=== PATIENT | male | born 1980 | race Caucasian/White ===

== ENCOUNTER → 2019-05-06 | Outpatient (CLI) | payer SELFPAY | PROVIDERS: Visit Provider Internal Medicine Hematology & Oncology | DX: C18.2 Malignant neoplasm of ascending colon (principal) | CPT/HCPCS: 80053; 82378; 85025 ==

== ENCOUNTER → 2019-05-07 | Outpatient (CLI) | payer SELFPAY | PROVIDERS: Visit Provider Internal Medicine Hematology & Oncology | DX: C18.2 Malignant neoplasm of ascending colon (principal) | CPT/HCPCS: 85025 ==

== ENCOUNTER 2019-07-16 08:44 | Outpatient (CLI) | payer SELFPAY ==
--- NOTE | 2019-07-16 12:24 | ONC FU_ITS ---
Dr. Carlos follow up note Patient: Boubacar Martinez Unit #: [id number]: 1980 Dicatated By: Benjie Carlos M.D.Date of Visit:Jul 16, 2019 Onc Med Follow-up/Prog Note History of Present Illness: Mr. Boubacar Martinez, is a 38-year-old gentleman with history of progressive abdominal pain and distention underwent CT scan of abdomen on 02/14/2019 which showed luminal narrowing in the mid to distal transverse colon and was admitted to hospital with symptoms suggestive of obstruction and nasogastric tube was placed in. Patient continued to have small amount of flatus and some liquid stools and underwent colonoscopy which confirmed adenocarcinoma and subsequently underwent extended right hemicolectomy on 02/17/2019 final pathology report showed low-grade infiltrating adenocarcinoma, invasive into focally through muscularis propria, into superficial serosal connective tissue. Tumor size was 4 x 3.5 x 0.5 cm. Margins were clear,pT3 18 lymph nodes were removed and none of them showed metastatic disease pN0 , No lymphovascular invasion or venous invasion seen, MSI MMR status was intact. Oncotype DX score 38, means risk of recurrence within 3-year-old surgery alone is 17% for T3 tumor. And patient in whom, more than 12 nodes were examined the 3 years recurrence risk inpatient for T3, MMR proficient the absolute reduction in risk is 2% for low risk patient and are patient has a low risk disease except his age he is young and MMR proficient. Patient has no family history of colon cancer.Patient was referred to GI oncology at [facility] where he was seen on 07/14/2019 and their recommendations were observation alone with CBC CMP and CEA every [address] scan of abdomen pelvis every 6 months. And also recommended colonoscopy in a year from the surgery which was done on 02/17/2019 and if no adenoma present then repeat in 3-5 years. Also recommended genetic counseling, CT scan of abdomen pelvis was done on 06/14/2019 at [facility], it showed postsurgical changes of right hemicolectomy with no evidence of local tumor recurrence or metastatic disease to the abdomen or pelvis. Came for follow-up, denies any specific complaints, no nausea or vomiting no fever or chills no diarrhea or constipation, no abdominal pain. Patient said he is scheduled to go to genetic clinic at [facility] in the summer. Medications: This patient reports not taking external medications. Allergies: No Known Allergies. Review of Systems: Review of Systems is not available for this patient. Vital Signs: Performed on Jul 16, 2019 08:58 Height - 71.00 in Weight - 265 lbs (HIGH) BSA - 2.38 sq.m BMI - 36.96 (HIGH) Temperature - 97.1 F (LOW) Pulse - 82 /min Respiration - 18 /min BP - 134/69 mm(hg) O2 Sat - 98 % Pain - 0 Performance Status: 0 - Fully active, able to carry on all predisease activities without restrictions. (ECOG) Physical Examination: ENMT - No oral exudates, ulcers, masses, thrush or mucositis. Oropharynx clear. Tongue normal, Respiratory - Lungs are clear to auscultation without rhonchi or wheezing, Cardiovascular - Regular rate and rhythm of heart, Abdomen - Non-tender, non-distended, Good bowel sounds. No guarding or rebound tenderness. No pulsatile masses, Extremities - no edema. Lab/Imaging: Test performed on Jul 14, 2019 13:51 Glucose 128 mg/dL BUN 14 mg/dL Creatinine 0.93 mg/dL Cr Clearance (Est) 166.66 mL/min Sodium 138 mmol/L Potassium 4.0 mmol/L Chloride 101 mmol/L CO2 24 mmol/L Calcium 9.5 mg/dL Protein, Total 8.0 g/dL Albumin 4.5 g/dL Bilirubin, Total 0.37 mg/dL Alkaline Phosphatase 37 IU/L AST (SGOT) 30 IU/L ALT (SGPT) 51 IU/L WBC 6.32 10^9/L RBC 5.41 10^12/L HGB 13.6 g/dL HCT 44.3 % MCV 81.9 fl MCH 25.1 pg MCHC 30.7 g/dL Platelet Count 254 10^9/L MPV 10.4 fL Neutrophils (Gran) 3.23 10^9/L Lymphocytes 2.19 10^9/L Monocytes 0.50 10^9/L Eosinophils 0.32 10^9/L Basophils 0.06 10^9/L Manual Lymphocytes 34.7 % Manual Monocytes 7.9 % Manual Eosinophils 5.1 % Manual Basophils 0.9 % CEA 2.12 ng/mL Test performed on May 07, 2019 08:10 RDW 15.3 % Neutrophil % 48.9 % Lymphocyte % 36.6 % Monocyte % 7.7 % Eosinophil % 5.6 % Basophils % 0.9 % Test performed on May 06, 2019 09:40 Anion Gap 16.4 eGFR 108.8 mL/min Globulin 2.5 gm/dL Impression: Low-grade infiltrating adenocarcinoma involving right coronary status post right hemicolectomy done on 02/17/2019 Final pathology report showed 4 x 3.5 x 0.5 cm tumor with focal invasion through muscularis propria, into superficial serosal connective tissue. Clear surgical margins pT3 0 out of 18 lymph nodes showed metastatic disease pN0 No lymphovascular invasion or venous invasion seen. MSI MMR intact Stage II Oncotype DX score checked on 04/01/2019 showed 38, which means risk of recurrence within 3 years of surgery alone is about 17% And also inpatient with more than 12 lymph node examined, 3 years risk of recurrence was in lower in T3 MMR proficient patient an absolute reduction in risk range from 2% for the low risk to 6% for the high risk. Patient is a low risk based on above-mentioned information. Plan: Discussed with patient regarding his labs white blood count 6.3, hemoglobin 13.6 crit 44.3 platelets 254,000 CMP within normal limits CEA 2.12 Clinically, patient doing well with no signs symptoms suggestive of recurrence of disease, follow-up lab shows normal hemoglobin, tumor marker CEA within normal limits and CT scan of abdomen pelvis done on 06/14/2019 at [facility] showed no evidence of metastatic disease. Patient will return to clinic in 3 months with CBC CMP and CEA and we will follow their recommendation as far as follow-up is concern. Signed By: Benjie Carlos M.D. <<Signature on File>>
== END 2019-07-16 08:45 | disposition home or self-care (01) ==
LOC: ONCMED 08:44
PROVIDERS: Visit Provider Internal Medicine Hematology & Oncology
DX: Z08 Encounter for follow-up examination after completed treatment for malignant neoplasm (principal); Z85.038 Personal history of other malignant neoplasm of large intestine; Z90.49 Acquired absence of other specified parts of digestive tract
CPT/HCPCS: G0463

== ENCOUNTER 2019-08-13 22:37 | Emergency (ER) | payer SELFPAY ==
--- NOTE | 2019-08-13 22:56 | ED_ITS ---
HPI - Back Pain/Injury General: Chief Complaint: Back Pain/Injury Stated Complaint: back pain Time Seen by Provider: 08/13/19 22:56 Source: patient Mode of arrival: ambulatory Limitations: no limitations History of Present Illness: HPI Narrative: Pt presents with complaints of right flank and back pain. States he has had some SOB since arriving and complains of right shoulder pain. MD elicited complaint: back pain Severity: moderate Associated symptoms: Deny abdominal pain, chills, fever(s) or nausea Review of Systems General: Reports: 10 or more systems reviewed and unremarkable except in HPI and below Const: Denies: fever or chills Eyes: Denies: change in vision Resp: Reports: shortness of breath GI: Denies: abdominal pain or nausea : Reports: flank pain (right flank ) PFSH ED PFSH: Social History Smoking and tobacco status: never smoked Physical Exam Const: COMMON NORMALS: no apparent distress, oriented x3, no limitations and alert GENERAL APPEARANCE: cooperative and comfortable ORIENTATION/CONSCIOUSNESS: Yes awake, Yes oriented to person, Yes oriented to place and Yes oriented to time HENMT: COMMON NORMALS: normocephalic, head/scalp atraumatic, external ears normal, EAC's normal, TM's normal bilaterally and external nose normal HEAD & SCALP: normal to inspection, normocephalic and atraumatic FACE & SINUS: normal facial exam, sinuses nontender and face symmetric NOSE: external nose normal, nares normal and no nasal discharge EXTERNAL EAR: Yes external ears normal EXTERNAL AUDITORY CANAL: EAC's normal TYMPANIC MEMBRANE: TM's normal bilaterally MOUTH: oral and palatal mucosa normal, lip normal and tongue normal THROAT: posterior oropharynx normal, tonsils normal and uvula midline Eye: COMMON NORMALS: PERRL, EOMs intact bilaterally and conjunctivae normal GENERAL EYE: normal appearance of both eyes and normal light reflex EYELID: eyelids normal CONJUNCTIVA: Yes conjunctivae normal PUPIL: Yes PERRL EOM: Yes EOM abnormal DIRECT OPHTHALMOSCOPY: Yes normal light reflex Neck/C-Spine: COMMON NORMALS: full ROM, no lymphadenopathy, supple, no meningeal signs, no JVD and thyroid normal GENERAL: Yes normal visual inspection THYROID: thyroid normal CERVICAL SPINE: Yes cervical ROM normal and Yes normal cervical lordosis Lymph: LYMPHATIC: no lymphadenopathy noted Chest: COMMONS NORMALS: inspection of chest normal and palpation of chest normal Resp: COMMON NORMALS: normal respiratory effort, no retractions and clear to auscultation bilaterally AUSCULTATION: clear to auscultation bilaterally Cardio: COMMON NORMALS: no JVD, regular rate, regular rhythm, S1 normal heart sound, S2 normal heart sound, no gallops, no clicks, no murmurs, no rub and peripheral pulses 2+ throughout RATE: regular rate RHYTHM: regular rhythm HEART SOUNDS: S1 normal and S2 normal PERIPHERAL PULSES: pulses 2+ throughout GI: COMMON NORMALS: normal to inspection, nondistended, normoactive bowel sounds, soft to palpation, non-tender and no masses PALPATION: Yes soft : COMMON NORMALS: Yes no CVA tenderness BLADDER/KIDNEY EXAM: Yes no CVA tenderness Back/Pelvis: COMMON NORMALS: no CVA tenderness, thoracic and lumbar spine normal to inspection, no thoracic nor lumbar tenderness and thoraco-lumbar ROM normal Extremity: COMMON NORMALS: normal to inspection, full ROM, normal capillary refill, no joint enlargement, no clubbing, cyanosis or edema, no calf tenderness and no pedal edema GENERAL: Yes normal exam except as noted Neuro: COMMON NORMALS: oriented x3, moves all extremities, no focal motor deficits, no sensory deficits noted and gait normal SENSORIUM/ORIENTATION: Yes alert, Yes oriented to person, Yes oriented to place and Yes oriented to time MENINGEAL SIGNS: Yes no meningeal signs Psych: COMMON NORMALS: mental status grossly normal, thought process normal, cooperative, affect normal, speech normal and activity/motor behavior normal SPEECH: Yes normal speech THOUGHT PROCESS: normal thought process Skin: COMMON NORMALS: no rashes or lesions noted, no wounds and skin turgor normal GENERAL SKIN EXAM: no rashes or lesions noted and turgor normal Course ED course: Pt tachycardic upon triage. Complains of SOB and right shoulder pain with right flank tenderness. Rule out PE. Hx of bowel resection for colon cancer 6 mos ago. Imaging ordered, labs, and pain meds prescribed. Reevaluation(s): Reevaluation #1: Pt ct scan shows changes to previous colon resection and active colitis. He is afebrile but remains tachycardic. He is less pain after IV pain medications. Will consult with my attending Dr. Tran for further orders. Time: 01:21 Reevaluation #2: Will treat with oral antibx for colitis. Pt must return if fever develops. Follow up with Dr. Carlos on Friday to review his ct scan from today. Will dc as his WBC is 10.3 and he denies NV and is afebrile. His pain is under control and able to tolerate fluids. Time: 01:45 Vital Signs: Vital signs: Vital Signs Temperature 97.3 F L 08/13/19 23:04 Pulse Rate 98 08/14/19 00:35 Respiratory Rate 16 08/14/19 00:35 Blood Pressure 110/68 08/14/19 00:35 Pulse Oximetry 95 08/14/19 00:35 MDM - Back Pain/Injury Lab Data: Labs: Lab Results 08/13/19 08/13/19 Range/Units 23:43 23:43 WBC 10.6 H (4.0-10.0) 10^3/ uL RBC 5.53 H (4.1-5.3) 10^6/u L Hgb 14.4 (11.7-16.6) g/dL Hct 45.7 (42.0-52.0) % MCV 82.6 (80-94) fL MCH 26.0 L (28.0-34.0) pg MCHC 31.5 (30.0-36.0) g/dL RDW 17.5 H (12.1-15.1) % Plt Count 236 (130-400) 10^3/c mm MPV 10.2 (7.4-10.4) fL Neut % (Auto) 73.4 % Lymph % (Auto) 15.2 % Sabine % (Auto) 7.0 % Eos % (Auto) 3.6 % Baso % (Auto) 0.5 % Neut # (Auto) 7.8 H (1.8-7.7) 10^3/u L Lymph # (Auto) 1.6 (0.8-4.8) 10^3/u L Sabine # (Auto) 0.7 (0.2-0.9) 10^3/u L Eos # (Auto) 0.4 (0.0-0.8) 10^3/u L Baso # (Auto) 0.1 (0.0-0.1) 10^3/u L Nucleated RBC % (a uto) 0 % Nucleated RBCs # 0.0 /100WBC Sodium 135 L (136-145) mmol/L Potassium 4.6 (3.5-5.1) mmol/L Chloride 99 (98-107) mmol/L Carbon Dioxide 24 (22-29) mmol/L Anion Gap 16.6 (5-19) BUN 14 (6-20) mg/dL Creatinine 1.0 (0.7-1.2) mg/dL GFR Calculation 83.6 L (90-130) mL/min Glucose 140 H (65-115) mg/dL Calculated Osmolal ity 279 L (285-295) mOsm/k g Calcium 9.6 (8.5-10.5) mg/dL Total Bilirubin 0.3 (0.15-1.2) mg/dL AST 5 (0-40) U/L ALT 58 H (0-41) U/L Alkaline Phosphata se 43 (40-130) IU/L Total Protein 8.1 (6.6-8.7) g/dL Albumin 4.3 (3.5-5.2) g/dL Globulin 3.8 (1.3-4.6) g/dL Imaging Data^: CTA Chest: Radiologist's impression: [place] [address] CT Scan Report Signed Patient: Boubacar Martinez Unit #: [id number] : 1980 Age/Sex: 39 / M ADM Date: 08/13/19 Loc: ER Room/Bed: Attending Dr: Ordering Provider/Ordering MD: Araseli Davis NP Date of Service: 08/13/19 Procedure(s): CT angio chest w abd pel w con Accession Number(s): [id number] Report Number: [id number] PROCEDURE INFORMATION: Exam: CT Angiography Chest With Contrast Exam date and time: 08/13/2019 11:44 PM Age: 39 years old Clinical indication: Abdominal pain; Flank; Right; Shortness of breath; Other: Pleuritic pain; Prior surgery; Surgery date: 6+ months; Surgery type: Bowel resection; Patient HX: HX colon CA; Additional info: SOB; Pleuritic pain, right flank TECHNIQUE: Imaging protocol: Computed tomographic angiography of the chest with intravenous contrast. 3D rendering: MIP and/or 3D reconstructed images were created by the technologist. Total DLP: 1983.45 mGy-cm Radiation optimization: All CT scans at this facility use at least one of these dose optimization techniques: automated exposure control; mA and/or kV adjustment per patient size (includes targeted exams where dose is matched to clinical indication); or iterative reconstruction. Contrast material: OMNI 350; Contrast volume: 95 ml; Contrast route: 18G; COMPARISON: No relevant prior studies available. FINDINGS: Pulmonary arteries: There is no evidence of filling defects within the pulmonary arterial circulation to suggest pulmonary embolism. Aorta: There is no evidence of aortic dissection or aneurysm. Lungs: There is some dependent atelectasis at the lung bases. Pleural space: Unremarkable. No pneumothorax. No pleural effusion. Heart: Unremarkable. No cardiomegaly. No pericardial effusion. Lymph nodes: Unremarkable. No enlarged lymph nodes. Bones/joints: There is mild degenerative change in the thoracic spine with scoliosis concave to the left. Soft tissues: Unremarkable. IMPRESSION: Mild basilar atelectasis. No evidence of pulmonary embolism. PROCEDURE INFORMATION: Exam: CT Abdomen And Pelvis With Contrast Exam date and time: 08/13/2019 11:44 PM Age: 39 years old Clinical indication: Abdominal pain; Flank; Right; Shortness of breath; Other: Pleuritic pain; Prior surgery; Surgery date: 6+ months; Surgery type: Bowel resection; Patient HX: HX colon CA; Additional info: SOB; Pleuritic pain, right flank TECHNIQUE: Imaging protocol: Computed tomography of the abdomen and pelvis with intravenous contrast. Total DLP: 1983.45 mGy-cm Radiation optimization: All CT scans at this facility use at least one of these dose optimization techniques: automated exposure control; mA and/or kV adjustment per patient size (includes targeted exams where dose is matched to clinical indication); or iterative reconstruction. Contrast material: OMNI 350; Contrast volume: 95 ml; Contrast route: 18G; COMPARISON: CT abdomen pelvis w con* [id number] 02/14/2019 9:28:24 PM FINDINGS: Liver: Liver shows diffusely decreased density in keeping with fatty change. There is some areas of greater density in the liver representing portions which are relatively spared of fatty change. There is no focal mass within the liver. Gallbladder and bile ducts: The gallbladder is normal. Pancreas: The pancreas is normal. Spleen: The spleen is normal. Adrenals: The adrenal glands are normal. Kidneys and ureters: The kidneys are normal. Stomach and bowel: There has been right hemicolectomy. Colon is not distended but there does appear to be some mural thickening of the distal half of the descending colon which could represent some nonspecific colitis. There is no evidence for diverticulitis. There is no evidence of intestinal obstruction. There is some mildly thickened small bowel loops in the mid abdomen which may represent some nonspecific enteritis. Appendix: No evidence of appendicitis. Intraperitoneal space: There is no evidence of free intraperitoneal fluid. Vasculature: Unremarkable. No abdominal aortic aneurysm. Lymph nodes: Unremarkable. No enlarged lymph nodes. Bladder: Unremarkable as visualized. Reproductive: Unremarkable as visualized. Bones/joints: Unremarkable. No acute fracture. Soft tissues: Unremarkable. CT/CT angio chest w abd pel w con IMPRESSION: 1. Fatty liver 2. Colitis of the descending colon 3. Mild nonspecific enteritis. 4. Postsurgical changes of right hemicolectomy. Radiation Dose CTDIVOL = (mGy): DLP = 1984.45 1984.45 (mGy-cm) Dictated By: Teodoro Powers Signed By: Teodoro Powers Signed Date/Time: 08/14/19102 DD/ 0 Discharge Plan Discharge Patient Disposition: Home, Self-Care Clinical Impression: Colitis Condition: Stable Prescriptions: New Cipro 500 mg tablet 500 mg PO BID Qty: 14 RF: 0 Tylenol-Codeine #3 300-30 mg tablet 1 tab PO Q8H Qty: 10 RF: 0 Zofran 4 mg tablet 4 mg PO Q8H 4 Days Qty: 12 RF: 0 Flagyl 500 mg tablet 500 mg PO BID 7 Days Qty: 14 RF: 0 Discharge Diet: Advance as tolerated and Clear Liquid Discharge Activity: Limit activity as instructed Activity Restrictions/Additional Instructions: Follow up with Dr. Carlos next week to review your CT findings and return to ER erik if fever, NV, or blood in stool develops. Coding Level of Care Code ED [employer] for Judith Fwd Exam Comprehensive
[2019-08-13 23:04] VITALS: BP 137/89; PULSE 104; RESP 17; TEMP 36.3; O2SAT 96; BMI 33.7
--- NOTE | 2019-08-13 23:13 | PC.NURSE ---
Introduced self to patient and initiated vital signs. Patient presents A&O x 4. NAD, ABCs intact, MAEW and agreeable to treatment. Respirations are even and unlabored. Pt states that the chief complaint for the ER visit today is due to lower right back pain when getting off of couch this evening. Pt denies any vision disturbances or lightheadedness. Bed left in lowest position in semi-fowlers with side rails up.Reassured patient of needs and will continue to monitor. Awaiting provider at bedside.
--- NOTE | 2019-08-13 23:36 | CTR_ITS ---
PROCEDURE INFORMATION: Exam: CT Angiography Chest With Contrast Exam date and time: 08/13/2019 11:44 PM Age: 39 years old Clinical indication: Abdominal pain; Flank; Right; Shortness of breath; Other: Pleuritic pain; Prior surgery; Surgery date: 6+ months; Surgery type: Bowel resection; Patient HX: HX colon CA; Additional info: SOB; Pleuritic pain, right flank TECHNIQUE: Imaging protocol: Computed tomographic angiography of the chest with intravenous contrast. 3D rendering: MIP and/or 3D reconstructed images were created by the technologist. Total DLP: 1983.45 mGy-cm Radiation optimization: All CT scans at this facility use at least one of these dose optimization techniques: automated exposure control; mA and/or kV adjustment per patient size (includes targeted exams where dose is matched to clinical indication); or iterative reconstruction. Contrast material: OMNI 350; Contrast volume: 95 ml; Contrast route: 18G; COMPARISON: No relevant prior studies available. FINDINGS: Pulmonary arteries: There is no evidence of filling defects within the pulmonary arterial circulation to suggest pulmonary embolism. Aorta: There is no evidence of aortic dissection or aneurysm. Lungs: There is some dependent atelectasis at the lung bases. Pleural space: Unremarkable. No pneumothorax. No pleural effusion. Heart: Unremarkable. No cardiomegaly. No pericardial effusion. Lymph nodes: Unremarkable. No enlarged lymph nodes. Bones/joints: There is mild degenerative change in the thoracic spine with scoliosis concave to the left. Soft tissues: Unremarkable. IMPRESSION: Mild basilar atelectasis. No evidence of pulmonary embolism. PROCEDURE INFORMATION: Exam: CT Abdomen And Pelvis With Contrast Exam date and time: 08/13/2019 11:44 PM Age: 39 years old Clinical indication: Abdominal pain; Flank; Right; Shortness of breath; Other: Pleuritic pain; Prior surgery; Surgery date: 6+ months; Surgery type: Bowel resection; Patient HX: HX colon CA; Additional info: SOB; Pleuritic pain, right flank TECHNIQUE: Imaging protocol: Computed tomography of the abdomen and pelvis with intravenous contrast. Total DLP: 1983.45 mGy-cm Radiation optimization: All CT scans at this facility use at least one of these dose optimization techniques: automated exposure control; mA and/or kV adjustment per patient size (includes targeted exams where dose is matched to clinical indication); or iterative reconstruction. Contrast material: OMNI 350; Contrast volume: 95 ml; Contrast route: 18G; COMPARISON: CT abdomen pelvis w con* [id number] 02/14/2019 9:28:24 PM FINDINGS: Liver: Liver shows diffusely decreased density in keeping with fatty change. There is some areas of greater density in the liver representing portions which are relatively spared of fatty change. There is no focal mass within the liver. Gallbladder and bile ducts: The gallbladder is normal. Pancreas: The pancreas is normal. Spleen: The spleen is normal. Adrenals: The adrenal glands are normal. Kidneys and ureters: The kidneys are normal. Stomach and bowel: There has been right hemicolectomy. Colon is not distended but there does appear to be some mural thickening of the distal half of the descending colon which could represent some nonspecific colitis. There is no evidence for diverticulitis. There is no evidence of intestinal obstruction. There is some mildly thickened small bowel loops in the mid abdomen which may represent some nonspecific enteritis. Appendix: No evidence of appendicitis. Intraperitoneal space: There is no evidence of free intraperitoneal fluid. Vasculature: Unremarkable. No abdominal aortic aneurysm. Lymph nodes: Unremarkable. No enlarged lymph nodes. Bladder: Unremarkable as visualized. Reproductive: Unremarkable as visualized. Bones/joints: Unremarkable. No acute fracture. Soft tissues: Unremarkable. CT/CT angio chest w abd pel w con IMPRESSION: 1. Fatty liver 2. Colitis of the descending colon 3. Mild nonspecific enteritis. 4. Postsurgical changes of right hemicolectomy. Radiation Dose CTDIVOL = (mGy): DLP = 1983.45~1983.45 (mGy-cm)
[2019-08-13 23:49] VITALS: RESP 18
[2019-08-13 23:49] LABS: Basophils # 0.1 10^3/uL (0.0-0.1); Basophils % 0.5 %; Eosinophils # 0.4 10^3/uL (0.0-0.8); Eosinophils % 3.6 %; Hematocrit 45.7 % (42.0-52.0); Hemoglobin 14.4 g/dL (11.7-16.6); Lymphocytes # 1.6 10^3/uL (0.8-4.8); Lymphocytes % 15.2 %; Mean Corpuscular HGB Conc 31.5 g/dL (30.0-36.0); Mean Corpuscular Volume 82.6 fL (80-94); Mean Platelet Volume 10.2 fL (7.4-10.4); Monocytes # 0.7 10^3/uL (0.2-0.9); Neutrophils # 7.8 10^3/uL (1.8-7.7); Neutrophils % 73.4 %; Nucleated Red Blood Cells % 0 %; Platelet Count 236 10^3/cmm (130-400); Red Blood Count 5.53 10^6/uL (4.1-5.3); Red Cell Distribution Width 17.5 % (12.1-15.1); White Blood Count 10.6 10^3/uL (4.0-10.0)
[2019-08-13] MEDS: morphine 4 mg/mL SDV 1 mL IVP (23:49)
[2019-08-13] MEDS: ondansetron 2 mg/ML SDV 2 mL 4 MG IVP (23:50)
[2019-08-14 00:01] LABS: Albumin Level 4.3 g/dL (3.5-5.2); Alkaline Phosphatase 43 IU/L (40-130); Anion Gap 16.6 (5-19); Blood Urea Nitrogen 14 mg/dL (6-20); Calcium 9.6 mg/dL (8.5-10.5); Carbon Dioxide 24 mmol/L (22-29); Chloride 99 mmol/L (98-107); Globulin 3.8 g/dL (1.3-4.6); Glomerular Filtration Rate 83.6 mL/min (90-130); Glucose 140 mg/dL (65-115); Osmolality Calculated 279 mOsm/kg (285-295); Potassium 4.6 mmol/L (3.5-5.1); Sodium 135 mmol/L (136-145); Total Bilirubin 0.3 mg/dL (0.15-1.2); Total Protein 8.1 g/dL (6.6-8.7)
[2019-08-14 00:12] LABS: Alanine Aminotransferase 58 U/L (0-41); Aspartate Amino Transferase 5 U/L (0-40)
[2019-08-14] MEDS: iohexol 350 mg/mL 100 mL Btl IV (00:16)
[2019-08-14 00:35] VITALS: BP 110/68; PULSE 98; RESP 16; O2SAT 95
[2019-08-14] MEDS: morphine 4 mg/mL SDV 1 mL IVP (00:49)
[2019-08-14] MEDS: sodium chloride 0.9% 500 ML 999 ML IV (01:29)
[2019-08-14] MEDS: metroNIDAZOLE 500 MG Tablet PO (01:45)
[2019-08-14] MEDS: ciprofloxacin 500 mg Tablet PO (01:46)
[2019-08-14] MEDS: HYDROcodone-acetaminophen 5-325 mg Tablet 1 TAB PO (01:46)
[2019-08-14 02:19] LABS: Bilirubin Urine Neg (NEGATIVE); Blood Urine Neg (Negative); Glucose Urine UA Norm (Normal); Ketones Urine Negative (Negative); Nitrate Urine Negative (Negative); Protein Urine Trace (Negative); Specific Gravity, Urine 1.005 (1.005-1.030); Urine Appearance Clear (CLEAR); Urine Color Yellow (Yellow); pH Urine 5 (5-7)
[2019-08-14 02:20] LABS: Add Urine Microscopic? YES; Leukocyte Esterase Urine Negative (Negative); Urobilinogen Urine 1 mg/dL (Negative)
[2019-08-14 02:28] LABS: Bacteria Urine TRACE; RBC Urine RARE /hpf (0-2); Squamous Epithelial Cell Urine RARE (0-5); WBC Urine RARE /hpf (0-5)
[2019-08-14 02:31] VITALS: BP 110/68; PULSE 84; RESP 18; TEMP 37.1; O2SAT 94
--- NOTE | 2019-08-16 11:16 | DCPLANNER ---
Addendum entered by Janet Gibbons 08/17/19 15:12: Patient had an appointment scheduled for 08.16.[address] Carlos, and patient did attend the appointment. Original Note: customer support manager had message to schedule a follow up appointment for patient with Dr. Carlos. customer support manager called Mari Mi, with oncology, gave clinic patients information. customer support manager was told that patients information would be printed and reviewed. Clinic will call patient with appointment information, rifle case repairer will call for appointment information.
== END 2019-08-14 02:20 | disposition home or self-care (01) ==
PROVIDERS: Emergency Provider Nurse Practitioner Family
DX: K52.9 Noninfective gastroenteritis and colitis, unspecified (principal)
CPT/HCPCS: 12345; 71275; 74177; 80053; 81001; 85025; 96360; 96374; 96375; 96376; 99283; 99284; J2270; J2405; J7040; Q9967

== ENCOUNTER 2019-10-15 07:41 | Outpatient (CLI) | payer SELFPAY ==
[2019-10-15 08:15] LABS: Basophils # 0.1 10^3/uL (0.0-0.1); Basophils % 0.9 %; Eosinophils # 0.5 10^3/uL (0.0-0.8); Eosinophils % 7.3 %; Hematocrit 45.8 % (42.0-52.0); Hemoglobin 14.6 g/dL (11.7-16.6); Lymphocytes # 2.2 10^3/uL (0.8-4.8); Lymphocytes % 34.2 %; Mean Corpuscular HGB Conc 31.9 g/dL (30.0-36.0); Mean Corpuscular Hemoglobin 27.3 pg (28.0-34.0); Mean Corpuscular Volume 85.6 fL (80-94); Mean Platelet Volume 10.2 fL (7.4-10.4); Monocytes # 0.5 10^3/uL (0.2-0.9); Monocytes % 7.5 %; Neutrophils # 3.2 10^3/uL (1.8-7.7); Neutrophils % 49.9 %; Nucleated Red Blood Cells % 0 %; Platelet Count 239 10^3/cmm (130-400); Red Blood Count 5.35 10^6/uL (4.1-5.3); Red Cell Distribution Width 15.1 % (12.1-15.1); White Blood Count 6.4 10^3/uL (4.0-10.0)
[2019-10-15 08:33] LABS: Carcinoembryonic Antigen 3.3 ng/mL (0.0-4.7)
[2019-10-15 08:44] LABS: Alanine Aminotransferase 65 U/L (0-41); Albumin Level 4.4 g/dL (3.5-5.2); Alkaline Phosphatase 33 IU/L (40-130); Anion Gap 15.2 (5-19); Aspartate Amino Transferase 35 U/L (0-40); Blood Urea Nitrogen 15 mg/dL (6-20); Calcium 9.6 mg/dL (8.5-10.5); Carbon Dioxide 24 mmol/L (22-29); Chloride 101 mmol/L (98-107); Globulin 3.4 g/dL (1.3-4.6); Glomerular Filtration Rate 108.2 mL/min (90-130); Glucose 114 mg/dL (65-115); Osmolality Calculated 279 mOsm/kg (285-295); Potassium 4.2 mmol/L (3.5-5.1); Sodium 136 mmol/L (136-145); Total Bilirubin 0.6 mg/dL (0.15-1.2); Total Protein 7.8 g/dL (6.6-8.7)
--- NOTE | 2019-10-15 10:17 | ONC FU_ITS ---
Dr. Carlos follow up note Patient: Boubacar Martinez Unit #: [id number]: 1980 Dicatated By: Benjie Carlos M.D.Date of Visit:Oct 15, 2019 Onc Med Follow-up/Prog Note History of Present Illness: Mr. Boubacar Martinez, is a 39-year-old gentleman with history of progressive abdominal pain and distention underwent CT scan of abdomen on 02/14/2019 which showed luminal narrowing in the mid to distal transverse colon and was admitted to hospital with symptoms suggestive of obstruction and nasogastric tube was placed in. Patient continued to have small amount of flatus and some liquid stools and underwent colonoscopy which confirmed adenocarcinoma and subsequently underwent extended right hemicolectomy on 02/17/2019 final pathology report showed low-grade infiltrating adenocarcinoma, invasive into focally through muscularis propria, into superficial serosal connective tissue. Tumor size was 4 x 3.5 x 0.5 cm. Margins were clear,pT3 18 lymph nodes were removed and none of them showed metastatic disease pN0 , No lymphovascular invasion or venous invasion seen, MSI MMR status was intact. Oncotype DX score 38, means risk of recurrence within 3-year-old surgery alone is 17% for T3 tumor. And patient in whom, more than 12 nodes were examined the 3 years recurrence risk inpatient for T3, MMR proficient the absolute reduction in risk is 2% for low risk patient and are patient has a low risk disease except his age he is young and MMR proficient. Patient has no family history of colon cancer.Patient was referred to GI oncology at [facility] where he was seen on 07/14/2019 and their recommendations were observation alone with CBC CMP and CEA every [address] scan of abdomen pelvis every 6 months. And also recommended colonoscopy in a year from the surgery which was done on 02/17/2019 and if no adenoma present then repeat in 3-5 years. Also recommended genetic counseling, CT scan of abdomen pelvis was done on 06/14/2019 at [facility], it showed postsurgical changes of right hemicolectomy with no evidence of local tumor recurrence or metastatic disease to the abdomen or pelvis. Came for follow-up, denies any specific complaints, no fever or chills, no nausea or vomiting, no diarrhea or constipation, no melena or hematochezia, no abdominal pain, no jaundice, no weight loss, appetite is good. Medications: This patient reports not taking external medications. Allergies: No Known Allergies. Review of Systems: Constitutional - Appetite is good and weight is flucuating. No fever, chills, hot flashes, or night sweats. Energy level is fair, ENMT - No sinus congestion/drainage. No mouth sores. No sore throat or difficulty swallowing, Hematologic/Lymphatic - No abnormal bruising or bleeding, Respiratory - No shortness of breath. No cough. No pleuritic pain or hemoptysis, Cardiovascular - No angina pain. No palpitations, Gastrointestinal - No nausea or vomiting. Positive for heartburn, no acid reflux. No diarrhea or constipation. No blood in the stool or black stools, Genitourinary (M) - No dysuria or hematuria. No urinary frequency. No urgency or incontinence, Musculoskeletal - Positive for back pain, Neurologic - No headache or dizziness. Positive for numbness, Psychiatric - No anxiety or depression. No insomnia. Vital Signs: Performed on Oct 15, 2019 09:51 Height - 71.00 in Weight - 267.8 lbs (HIGH) BSA - 2.39 sq.m BMI - 37.35 (HIGH) Temperature - 98.5 F Pulse - 85 /min Respiration - 22 /min BP - 116/75 mm(hg) O2 Sat - 96 % Pain - 0 Performance Status: 0 - Fully active, able to carry on all predisease activities without restrictions. (ECOG) Physical Examination: ENMT - No mouth sores, no thrush, no jaundice, Respiratory - Lungs are clear, Cardiovascular - Regular rate and rhythm of heart, Abdomen - Soft, bowel sounds present, Extremities - No edema or rash. Lab/Imaging: Test performed on Jul 14, 2019 13:51 Glucose 128 mg/dL BUN 14 mg/dL Creatinine 0.93 mg/dL Cr Clearance (Est) 166.66 mL/min Sodium 138 mmol/L Potassium 4.0 mmol/L Chloride 101 mmol/L CO2 24 mmol/L Calcium 9.5 mg/dL Protein, Total 8.0 g/dL Albumin 4.5 g/dL Bilirubin, Total 0.37 mg/dL Alkaline Phosphatase 37 IU/L AST (SGOT) 30 IU/L ALT (SGPT) 51 IU/L WBC 6.32 10^9/L RBC 5.41 10^12/L HGB 13.6 g/dL HCT 44.3 % MCV 81.9 fl MCH 25.1 pg MCHC 30.7 g/dL Platelet Count 254 10^9/L MPV 10.4 fL Neutrophils (Gran) 3.23 10^9/L Lymphocytes 2.19 10^9/L Monocytes 0.50 10^9/L Eosinophils 0.32 10^9/L Basophils 0.06 10^9/L Manual Lymphocytes 34.7 % Manual Monocytes 7.9 % Manual Eosinophils 5.1 % Manual Basophils 0.9 % CEA 2.12 ng/mL Test performed on May 07, 2019 08:10 RDW 15.3 % Neutrophil % 48.9 % Lymphocyte % 36.6 % Monocyte % 7.7 % Eosinophil % 5.6 % Basophils % 0.9 % Test performed on May 06, 2019 09:40 Anion Gap 16.4 eGFR 108.8 mL/min Globulin 2.5 gm/dL Impression: Low-grade infiltrating adenocarcinoma involving right coronary status post right hemicolectomy done on 02/17/2019 Final pathology report showed 4 x 3.5 x 0.5 cm tumor with focal invasion through muscularis propria, into superficial serosal connective tissue. Clear surgical margins pT3 0 out of 18 lymph nodes showed metastatic disease pN0 No lymphovascular invasion or venous invasion seen. MSI MMR intact Stage II Oncotype DX score checked on 04/01/2019 showed 38, which means risk of recurrence within 3 years of surgery alone is about 17% And also inpatient with more than 12 lymph node examined, 3 years risk of recurrence was in lower in T3 MMR proficient patient an absolute reduction in risk range from 2% for the low risk to 6% for the high risk. Patient is a low risk based on above-mentioned information. Plan: Discussed with patient regarding his labs white blood count 6.4 hemoglobin 14.6 crit 45.8 platelets 239,000 CMP within normal limits CEA 3.3 Clinically patient has no signs symptoms suggestive of recurrence of disease his lab work-up was within normal range including tumor marker. We will continue to monitor and he will return to clinic in 6 months with CMP and CEA , his year after surgery follow-up colonoscopy is due in February or March 2020. Signed By: Benjie Carlos M.D. <<Signature on File>>
== END 2019-10-15 07:42 | disposition home or self-care (01) ==
LOC: ONCMED 07:42
PROVIDERS: Visit Provider Internal Medicine Hematology & Oncology
DX: Z08 Encounter for follow-up examination after completed treatment for malignant neoplasm (principal); Z85.038 Personal history of other malignant neoplasm of large intestine; Z90.49 Acquired absence of other specified parts of digestive tract
CPT/HCPCS: 36415; 80053; 82378; 85025; G0463

== ENCOUNTER 2019-12-01 06:01 | Day surgery (SDC) | payer SELFPAY ==
[2019-11-29 13:16] VITALS: BMI 36.6
[2019-12-01 06:14] VITALS: BP 134/78; PULSE 77; RESP 18; TEMP 36.1; O2SAT 99
--- NOTE | 2019-12-01 06:21 | W.PM.OPSFHP ---
Same Day Surgery H&P Indication for Procedure/HPI DATE OF PROCEDURE: December 01, 2019 CHIEF COMPLAINT/INDICATIONFOR SURGICAL PROCEDURE: I am here to have colonoscopy PREOP DIAGNOSIS: History of colon cancer PLANNED PROCEDRUE: Operation Date: 12/01/19 07:00 Proposed Procedures p Colonoscopy 36882 Z86.010(Not Applicable) - Sterling Newton MD This is a pleasant 39 years old gentleman with history of right-sided colon Cancer that required right hemicolectomy about a year ago and patient was referred to my practice to discuss surveillance colonoscopy. Patient has been complaining of left-sided abdominal pain but the CT scan did not show much mostly musculoskeletal ROS All systems have been reviewed negative except as per the above or per problem list Medications/Allergies* Home Medications Medication Instructions Recorded Confirmed Type No Known Home Medications 11/29/19 11/29/19 History Allergies/Adverse Reactions Allergy/AdvReac Type Severity Reaction Status Date / Time No Known Allergies Allergy Verified 12/01/19 06:25 Pertinent History/Comorbid Conditions* Surgical History (Updated 10/29/19 @ 13:15 by Sterling Newton MD) H/O circumcision H/O colonoscopy 2018 H/O malignant neoplasm of colon History of colon resection colon cancer Family History (Updated 10/28/19 @ 11:23 by Britney Cortez LPN) Diabetes Cancer Father Grandfather Denies family history of CAD (coronary artery disease) Anesthesia complication Bleeding disorder Social History Smoking and tobacco status: never smoked Alcohol intake: never Household members: friend(s) Marital status: Single Current occupational status: employed History of recent travel: No Pertinent Exam Findings alert, oriented x 3, clear to auscultation bilaterally, regular rate & rhythm and procedure specific exam findings (Dominant examination nontender nondistended soft) Recommendations Surgery/Procedure today (Surveillance colonoscopy) Coding Level of Care Code Acute Local Sales Manager for [employer]
[2019-12-01] MEDS: sodium chloride 0.9% 1,000 ML 30 ML IV (06:34)
--- NOTE | 2019-12-01 06:52 | ANES.PREANE2 ---
Pre-Anesthetic Assessment Pre-Anesthetic Assessment: Height/Weight: Height 1.8 m Weight 119.295 kg Temp Pulse Resp BP Pulse Ox 97.0 F L 77 18 134/78 99 12/01/19 06:14 12/01/19 06:14 12/01/19 06:14 12/01/19 06:14 12/01/19 06:14 Preop Diagnosis: History of colon cancer Proposed Procedure: Operation Date: 12/01/19 07:00 Proposed Procedures p Colonoscopy 55575 Z86.010(Not Applicable) - Sterling Newton MD Was Beta Carmen taken within 24 hours: N/A Last intake: Intake Last Liquid Date 11/30/19 Last Liquid Time 21:00 Last Solid Date 11/29/19 Social: Social History: No alcohol and No tobacco Exam: Pre-Anes Outpt Exam: alert, oriented x 3, clear to auscultation bilaterally and regular rate & rhythm Airway: Submandibular: WNL Cervical ROM: WNL MP: 2 Additional comments: facial hair History/ROS: No significant history except as noted Pulmonary: Pulmonary: None reported CV/HEM: CV/HEM: None reported : : None reported Hepatic: Hepatic: None reported GI: GI: None reported Metabolic: Metabolic: None reported Musc/skel: Musc/skel: None reported Neuropsych: Neuropsych: None reported Anesthetic Plan: ASA status: 2 Anesthesia: Anesthesia Evaluation and MAC Risk of > 500 ml blood loss (7ml/kg in children): No Meds/Allergies Current Medications: Current Medications Generic Name Dose Route Start Last Admin Trade Name Freq PRN Reason Stop Dose Admin Sodium Chloride 1,000 mls @ 30 ml s/hr 12/01/19 06:15 12/01/19 06:34 Sodium Chloride 0.9% IV 30 mls/hr .Q24H JERONIMO Administration PFSH Anesthesia PFSH: Surgical History H/O circumcision H/O colonoscopy 2019 H/O malignant neoplasm of colon History of colon resection colon cancer Family History Father Cancer Grandfather Cancer Other Diabetes Denies family history of CAD (coronary artery disease) Anesthesia complication Bleeding disorder Social History Smoking and tobacco status: never smoked Alcohol intake: never Household members: friend(s) Marital status: Single Current occupational status: employed History of recent travel: No Data Anesthesia Cardiac Studies: No Data to Display
[2019-12-01 07:10] VITALS: BP 115/74; PULSE 82; RESP 18; TEMP 37.1; O2SAT 99
[2019-12-01 07:25] VITALS: BP 106/68; PULSE 80; RESP 18; O2SAT 96
== END 2019-12-01 07:30 | disposition home or self-care (01) ==
PROVIDERS: Visit Provider Surgery
PROC: 0DJD8ZZ Inspection of Lower Intestinal Tract, Via Natural or Artificial Opening Endoscopic (ICD-10-PCS; CPT 45378; principal; 2019-12-01 07:00)
DX: Z12.11 Encounter for screening for malignant neoplasm of colon (principal); Z80.0 Family history of malignant neoplasm of digestive organs; K63.89 Other specified diseases of intestine
CPT/HCPCS: 12345; 45378; J2704; J7030

== ENCOUNTER 2020-05-01 08:07 | Outpatient (CLI) | payer SELFPAY ==
[2020-05-01 09:01] LABS: Basophils # 0.1 10^3/uL (0.0-0.1); Basophils % 0.8 %; Eosinophils # 0.3 10^3/uL (0.0-0.8); Eosinophils % 5.1 %; Hemoglobin 15.5 g/dL (11.7-16.6); Lymphocytes # 2.5 10^3/uL (0.8-4.8); Lymphocytes % 36.8 %; Mean Corpuscular HGB Conc 31.6 g/dL (30.0-36.0); Mean Corpuscular Volume 85.4 fL (80-94); Mean Platelet Volume 10.3 fL (7.4-10.4); Monocytes # 0.5 10^3/uL (0.2-0.9); Monocytes % 7.8 %; Neutrophils # 3.28 10^3/uL (1.8-7.7); Neutrophils % 49.2 %; Nucleated Red Blood Cells % 0 %; Platelet Count 248 10^3/cmm (130-400); Red Blood Count 5.74 10^6/uL (4.1-5.3); White Blood Count 6.7 10^3/uL (4.0-10.0)
[2020-05-01 09:19] LABS: Alanine Aminotransferase 74 U/L (0-41); Albumin Level 4.5 g/dL (3.5-5.2); Alkaline Phosphatase 56 IU/L (40-130); Anion Gap 14.4 (5-19); Aspartate Amino Transferase 34 U/L (0-40); Blood Urea Nitrogen 12 mg/dL (6-20); Calcium 9.2 mg/dL (8.5-10.5); Carbon Dioxide 26 mmol/L (22-29); Chloride 101 mmol/L (98-107); Globulin 3.1 g/dL (1.3-4.6); Glomerular Filtration Rate 108.2 mL/min (90-130); Glucose 104 mg/dL (65-115); Osmolality Calculated 284 mOsm/kg (285-295); Potassium 4.4 mmol/L (3.5-5.1); Sodium 137 mmol/L (136-145); Total Bilirubin 0.3 mg/dL (0.15-1.2); Total Protein 7.6 g/dL (6.6-8.7)
[2020-05-01 09:50] LABS: Carcinoembryonic Antigen 1.8 ng/mL (0.0-4.7)
== END 2020-05-01 08:08 | disposition home or self-care (01) ==
LOC: ONCMED 08:08
PROVIDERS: Visit Provider Internal Medicine Hematology & Oncology
DX: C18.2 Malignant neoplasm of ascending colon (principal)
CPT/HCPCS: 36415; 80053; 82378; 85025

== ENCOUNTER 2020-05-02 05:57 | Outpatient (CLI) | payer SELFPAY ==
--- NOTE | 2020-05-02 09:46 | ONC FU_ITS ---
Dr. Carlos follow up note Patient: Boubacar Martinez Unit #: [id number]: 1980 Dicatated By: Benjie Carlos M.D.Date of Visit:May 02, 2020 Onc Med Follow-up/Prog Note History of Present Illness: Mr. Boubacar Martinez, is a 39-year-old gentleman with history of progressive abdominal pain and distention underwent CT scan of abdomen on 02/14/2019 which showed luminal narrowing in the mid to distal transverse colon and was admitted to hospital with symptoms suggestive of obstruction and nasogastric tube was placed in. Patient continued to have small amount of flatus and some liquid stools and underwent colonoscopy which confirmed adenocarcinoma and subsequently underwent extended right hemicolectomy on 02/17/2019 final pathology report showed low-grade infiltrating adenocarcinoma, invasive into focally through muscularis propria, into superficial serosal connective tissue. Tumor size was 4 x 3.5 x 0.5 cm. Margins were clear,pT3 18 lymph nodes were removed and none of them showed metastatic disease pN0 , No lymphovascular invasion or venous invasion seen, MSI MMR status was intact. Oncotype DX score 38, means risk of recurrence within 3-year-old surgery alone is 17% for T3 tumor. And patient in whom, more than 12 nodes were examined the 3 years recurrence risk inpatient for T3, MMR proficient the absolute reduction in risk is 2% for low risk patient and are patient has a low risk disease except his age he is young and MMR proficient. Patient has no family history of colon cancer.Patient was referred to GI oncology at [facility] where he was seen on 07/14/2019 and their recommendations were observation alone with CBC CMP and CEA every [address] scan of abdomen pelvis every 6 months. And also recommended colonoscopy in a year from the surgery which was done on 02/17/2019 and if no adenoma present then repeat in 3-5 years. Also recommended genetic counseling, CT scan of abdomen pelvis was done on 06/14/2019 at [facility], it showed postsurgical changes of right hemicolectomy with no evidence of local tumor recurrence or metastatic disease to the abdomen or pelvis. Underwent follow-up colonoscopy on December 01, 2019 which showed no abnormality noted, wide patent ileocolic anastomosis with no evidence of local recurrence Patient said in December 2019 he had 50 feet' fall and injured his upper back and fracture of scapula and multiple ribs for which he was transferred to [place] where he underwent upper back surgery and followed by rehab with good recovery Came for follow-up, denies any specific complaints, no melena or hematochezia no hemoptysis or hematemesis, no jaundice, no abdominal pain, recently underwent colonoscopy which was unremarkable. And also had work-related incident, as per patient had a 50 feet fall and injured his upper back/scapula and multiple ribs and was referred to [place] where he underwent surgery with thoracic vertebra internal fixation followed by rehab, now recovering well. Medications: This patient reports not taking external medications. Allergies: No Known Allergies. Review of Systems: Constitutional - Appetite is good and weight is flucuating. No fever, chills, hot flashes, or night sweats. Energy level is fair, ENMT - No sinus congestion/drainage. No mouth sores. No sore throat or difficulty swallowing, Hematologic/Lymphatic - No abnormal bruising or bleeding, Respiratory - No shortness of breath. No cough. No pleuritic pain or hemoptysis, Cardiovascular - No angina pain. No palpitations, Gastrointestinal - No nausea or vomiting. Positive for heartburn, no acid reflux. No diarrhea or constipation. No blood in the stool or black stools, Genitourinary (M) - No dysuria or hematuria. No urinary frequency. No urgency or incontinence, Musculoskeletal - Positive for back pain, Neurologic - No headache or dizziness. No numbness, Psychiatric - No anxiety or depression. No insomnia. Vital Signs: Performed on May 02, 2020 09:18 Height - 71.00 in Weight - 270.2 lbs (HIGH) BSA - 2.40 sq.m BMI - 37.69 (HIGH) Temperature - 98.2 F (LOW) Pulse - 90 /min Respiration - 22 /min BP - 138/87 mm(hg) O2 Sat - 97 % Pain - 0 Performance Status: 0 - Fully active, able to carry on all predisease activities without restrictions. (ECOG) Physical Examination: ENMT - No mouth sores, no thrush, no jaundice, Respiratory - Lungs are clear to auscultation, Cardiovascular - Regular rate and rhythm of heart, Abdomen - Soft, bowel sounds present, Extremities - No visible edema. Lab/Imaging: Test performed on May 01, 2020 08:41 Sodium 137 mmol/L Potassium 4.4 mmol/L Chloride 101 mmol/L CO2 26 mmol/L Anion Gap 14.4 BUN 12 mg/dL Creatinine 0.8 mg/dL Cr Clearance (Est) 215.1100 mL/min eGFR 108.2 mL/min Glucose 104 mg/dL Osmolality - Calculated 284 mOsm/kg Calcium 9.2 mg/dL Protein, Total 7.6 g/dL Albumin 4.5 g/dL Globulin 3.1 g/dL Bilirubin, Total 0.3 mg/dL ALT (SGPT) 74 U/L AST (SGOT) 34 U/L Alkaline Phosphatase 56 IU/L WBC 6.7 10 3/uL RBC 5.74 10 6/uL HGB 15.5 g/dL HCT 49.0 % MCV 85.4 fL MCH 27.0 pg MCHC 31.6 g/dL RDW 15.0 % Platelet Count 248 10 3/cmm MPV 10.3 fL Neutrophils 3.28 10 3/uL Lymphocytes 2.5 10 3/uL Monocytes 0.5 10 3/uL Eosinophils 0.3 10 3/uL Basophils 0.1 10 3/uL Neutrophil % 49.2 % Lymphocyte % 36.8 % Monocyte % 7.8 % Eosinophil % 5.1 % Basophils % 0.8 % NRBC % 0 % CEA 1.8 ng/mL Impression: Low-grade infiltrating adenocarcinoma involving right colon status post right hemicolectomy done on 02/17/2019 Final pathology report showed 4 x 3.5 x 0.5 cm tumor with focal invasion through muscularis propria, into superficial serosal connective tissue. Clear surgical margins pT3 0 out of 18 lymph nodes showed metastatic disease pN0 No lymphovascular invasion or venous invasion seen. MSI MMR intact Stage II Oncotype DX score checked on 04/01/2019 showed 38, which means risk of recurrence within 3 years of surgery alone is about 17% And also inpatient with more than 12 lymph node examined, 3 years risk of recurrence was in lower in T3 MMR proficient patient an absolute reduction in risk range from 2% for the low risk to 6% for the high risk. Patient is a low risk based on above-mentioned information Follow-up colonoscopy done on December 01, 2019 showed no abnormality no evidence of recurrence at anastomosis site. Plan: Discussed with patient regarding his labs white blood count 6.7 hemoglobin 15.5 hematocrit 49 platelets 248,000 CMP within normal limit except ALT 74 and CEA 1.8 and follow-up colonoscopy done in November 2019 showed no abnormality, anastomosis site no evidence of recurrence Clinically, patient doing well with no new signs symptom suggestive of recurrence of disease, follow-up lab work-up is within normal range except mildly elevated ALT which could be due to fatty liver, patient denies alcohol use, will continue to monitor, if worsening, will consider radiological studies. Return to clinic in 6 months with CBC CMP Signed By: Benjie Carlos M.D. <<Signature on File>>
== END 2020-05-02 05:58 | disposition home or self-care (01) ==
LOC: ONCMED 05:59
PROVIDERS: Visit Provider Internal Medicine Hematology & Oncology
DX: Z08 Encounter for follow-up examination after completed treatment for malignant neoplasm (principal); Z85.038 Personal history of other malignant neoplasm of large intestine; R74.01 Elevation of levels of liver transaminase levels; K76.0 Fatty (change of) liver, not elsewhere classified; Z90.49 Acquired absence of other specified parts of digestive tract
CPT/HCPCS: G0463

== ENCOUNTER 2020-10-31 10:27 | Outpatient (CLI) | payer MEDICAID, SELFPAY ==
[2020-10-31 12:09] LABS: Basophils % 0.6 %; Eosinophils # 0.3 10^3/uL (0.0-0.8); Eosinophils % 4.1 %; Hematocrit 47.6 % (42.0-52.0); Hemoglobin 15.4 g/dL (11.7-16.6); Lymphocytes # 2.1 10^3/uL (0.8-4.8); Lymphocytes % 31.7 %; Mean Corpuscular HGB Conc 32.4 g/dL (30.0-36.0); Mean Corpuscular Hemoglobin 29.2 pg (28.0-34.0); Mean Corpuscular Volume 90.2 fL (80-94); Mean Platelet Volume 10.4 fL (7.4-10.4); Monocytes # 0.4 10^3/uL (0.2-0.9); Monocytes % 6.2 %; Neutrophils # 3.76 10^3/uL (1.8-7.7); Neutrophils % 56.9 %; Nucleated Red Blood Cells % 0 %; Platelet Count 260 10^3/cmm (130-400); Red Blood Count 5.28 10^6/uL (4.1-5.3); Red Cell Distribution Width 13.6 % (12.1-15.1); White Blood Count 6.6 10^3/uL (4.0-10.0)
[2020-10-31 13:23] LABS: Alanine Aminotransferase 63 U/L (0-41); Albumin Level 4.6 g/dL (3.5-5.2); Alkaline Phosphatase 39 IU/L (40-130); Anion Gap 15.5 (5-19); Aspartate Amino Transferase 35 U/L (0-40); Blood Urea Nitrogen 13 mg/dL (6-20); Calcium 9.2 mg/dL (8.5-10.5); Carbon Dioxide 25 mmol/L (22-29); Chloride 101 mmol/L (98-107); Globulin 2.8 g/dL (1.3-4.6); Glomerular Filtration Rate 125.5 mL/min (90-130); Glucose 99 mg/dL (65-115); Osmolality Calculated 284 mOsm/kg (285-295); Potassium 4.5 mmol/L (3.5-5.1); Sodium 137 mmol/L (136-145); Total Bilirubin 0.4 mg/dL (0.15-1.2); Total Protein 7.4 g/dL (6.6-8.7)
--- NOTE | 2020-10-31 15:44 | ONC FU_ITS ---
Dr. Carlos follow up note Patient: Boubacar Martinez Unit #: [id number]: 1980 Dicatated By: Benjie Carlos M.D.Date of Visit:Oct 31, 2020 Onc Med Follow-up/Prog Note History of Present Illness: Mr. Boubacar Martinez, is a 40-year-old gentleman with history of progressive abdominal pain and distention underwent CT scan of abdomen on 02/14/2019 which showed luminal narrowing in the mid to distal transverse colon and was admitted to hospital with symptoms suggestive of obstruction and nasogastric tube was placed in. Patient continued to have small amount of flatus and some liquid stools and underwent colonoscopy which confirmed adenocarcinoma and subsequently underwent extended right hemicolectomy on 02/17/2019 final pathology report showed low-grade infiltrating adenocarcinoma, invasive into focally through muscularis propria, into superficial serosal connective tissue. Tumor size was 4 x 3.5 x 0.5 cm. Margins were clear,pT3 18 lymph nodes were removed and none of them showed metastatic disease pN0 , No lymphovascular invasion or venous invasion seen, MSI MMR status was intact. Oncotype DX score 38, means risk of recurrence within 3-year-old surgery alone is 17% for T3 tumor. And patient in whom, more than 12 nodes were examined the 3 years recurrence risk inpatient for T3, MMR proficient the absolute reduction in risk is 2% for low risk patient and are patient has a low risk disease except his age he is young and MMR proficient. Patient has no family history of colon cancer.Patient was referred to GI oncology at [facility] where he was seen on 07/14/2019 and their recommendations were observation alone with CBC CMP and CEA every [address] scan of abdomen pelvis every 6 months. And also recommended colonoscopy in a year from the surgery which was done on 02/17/2019 and if no adenoma present then repeat in 3-5 years. Also recommended genetic counseling, CT scan of abdomen pelvis was done on 06/14/2019 at [facility], it showed postsurgical changes of right hemicolectomy with no evidence of local tumor recurrence or metastatic disease to the abdomen or pelvis. Underwent follow-up colonoscopy on December 01, 2019 which showed no abnormality noted, wide patent ileocolic anastomosis with no evidence of local recurrence Patient said in December 2019 he had 50 feet' fall and injured his upper back and fracture of scapula and multiple ribs for which he was transferred to [place] where he underwent upper back surgery and followed by rehab with good recovery Came for follow-up, denies any specific complaints, no fever chills, no nausea or vomiting, no diarrhea or constipation, no abdominal pain, no jaundice, appetite is good. Medications: This patient reports not taking external medications. Allergies: No Known Allergies. Review of Systems: Review of Systems is not available for this patient. Vital Signs: Performed on Oct 31, 2020 13:08 Height - 71.00 in Weight - 273.0 lbs (HIGH) BSA - 2.41 sq.m BMI - 38.08 (HIGH) Temperature - 97.7 F (LOW) Pulse - 86 /min Respiration - 18 /min BP - 127/81 mm(hg) O2 Sat - 98 % Pain - 4 Performance Status: 0 - Fully active, able to carry on all predisease activities without restrictions. (ECOG) Physical Examination: ENMT - No mouth sores, no thrush, no jaundice, Respiratory - Lungs are clear to auscultation, Cardiovascular - Regular rate and rhythm of heart, Abdomen - Soft, bowel sounds present, Extremities - No visible edema or rash. Lab/Imaging: Most recent lab results are not available for this patient. Impression: Low-grade infiltrating adenocarcinoma involving right colon status post right hemicolectomy done on 02/17/2019 Final pathology report showed 4 x 3.5 x 0.5 cm tumor with focal invasion through muscularis propria, into superficial serosal connective tissue. Clear surgical margins pT3 0 out of 18 lymph nodes showed metastatic disease pN0 No lymphovascular invasion or venous invasion seen. MSI MMR intact Stage II Oncotype DX score checked on 04/01/2019 showed 38, which means risk of recurrence within 3 years of surgery alone is about 17% And also inpatient with more than 12 lymph node examined, 3 years risk of recurrence was in lower in T3 MMR proficient patient an absolute reduction in risk range from 2% for the low risk to 6% for the high risk. Patient is a low risk based on above-mentioned information Follow-up colonoscopy done on December 01, 2019 showed no abnormality no evidence of recurrence at anastomosis site. Plan: Discussed with patient regarding his labs white blood count 6.6 hemoglobin 15.4 hematocrit 47.6 platelets 260,000 CMP within normal limits Clinically, patient doing well with no new signs symptom suggestive of recurrence of disease, his lab work-up is within normal range, he will return to clinic in 6 months with CBC CMP and CEA. Signed By: Benjie Carlos M.D. <<Signature on File>>
== END 2020-10-31 10:28 | disposition home or self-care (01) ==
LOC: ONCMED 10:31
PROVIDERS: Visit Provider Internal Medicine Hematology & Oncology
DX: Z08 Encounter for follow-up examination after completed treatment for malignant neoplasm (principal); Z85.038 Personal history of other malignant neoplasm of large intestine; Z79.899 Other long term (current) drug therapy
CPT/HCPCS: 36415; 80053; 85025; 99214

== ENCOUNTER 2020-11-22 21:33 | Emergency (ER) | payer MEDICAID, SELFPAY ==
[2020-11-22 21:46] VITALS: BP 151/84; PULSE 103; RESP 17; TEMP 37.7; O2SAT 95; BMI 34.8
--- NOTE | 2020-11-22 22:46 | XRR_ITS ---
PROCEDURE INFORMATION: Exam: XR Chest Exam date and time: 11/22/2020 10:46 PM Age: 40 years old Clinical indication: Fever and shortness of breath; Prior surgery; Surgery type: Shoulder. ; Patient HX: SOB and fever. History of colon cancer. TECHNIQUE: Imaging protocol: XR of the chest. Views: 1 view. COMPARISON: [place] Chest 1 [place] [id number] 02/14/2019 9:05 PM FINDINGS: Lungs: Lungs are well aerated without a focal area of consolidation. Pleural spaces: See Bones/joints finding. Heart/Mediastinum: Unremarkable. No cardiomegaly. Bones/joints: Prior surgical fixation left scapula; Old rib fractures on the left. Pleural thickening. Prior left clavicular fracture. XR/XR chest 1V portable [id number] IMPRESSION: Lungs are well aerated without a focal area of consolidation.
[2020-11-23 01:17] VITALS: BP 133/88; PULSE 95; RESP 18; O2SAT 96
[2020-11-23] MEDS: sodium chloride 0.9% 1,000 ML 999 ML IV (01:29)
[2020-11-23] MEDS: ketorolac 30 mg/mL INJ IVP (01:30)
[2020-11-23 01:35] LABS: Basophils % 0.6 %; Eosinophils # 0.1 10^3/uL (0.0-0.8); Eosinophils % 0.9 %; Hematocrit 45.9 % (42.0-52.0); Hemoglobin 14.8 g/dL (11.7-16.6); Lymphocytes # 1.5 10^3/uL (0.8-4.8); Lymphocytes % 28.4 %; Mean Corpuscular HGB Conc 32.2 g/dL (30.0-36.0); Mean Corpuscular Hemoglobin 28.8 pg (28.0-34.0); Mean Corpuscular Volume 89.5 fL (80-94); Mean Platelet Volume 10.2 fL (7.4-10.4); Monocytes # 0.8 10^3/uL (0.2-0.9); Monocytes % 15.3 %; Neutrophils # 2.96 10^3/uL (1.8-7.7); Neutrophils % 54.4 %; Nucleated Red Blood Cells % 0 %; Platelet Count 210 10^3/cmm (130-400); Red Blood Count 5.13 10^6/uL (4.1-5.3); Red Cell Distribution Width 13.7 % (12.1-15.1); White Blood Count 5.4 10^3/uL (4.0-10.0)
--- NOTE | 2020-11-23 01:41 | W.ED.COVID ---
HPI - COVID General: Chief Complaint: COVID symptoms Stated Complaint: Fever\Head Aches\Nausea Time Seen by Provider: 11/23/20 01:00 Source: patient Mode of arrival: ambulatory Limitations: no limitations Triage information: Has fever, cough or shortness of breath. No known COVID + exposure last 14 days History of Present Illness: HPI Narrative: 40-year-old male with a previous history of colon cancer is currently in remission. He states that over last 2 days he is having fatigue is mild headaches cough and fever. He is febrile here. He denies any sick contacts. Denies any shortness of breath. He does have a low-grade fever here. He states concerned he may have Covid. He denies any worsening improving factors. COVID 19 common symptoms: positive fever(s), non-productive cough and body aches; negative headache(s), throat pain, nausea, vomiting or diarrhea COVID 19 other sytmptoms: negative chest pain COVID Results: SARS-CoV-2 Antigen (Rapid) Positive (Negative) H 11/23/20 01:52 11/23/20 Review of Systems Const: Reports: fever(s) and body aches Eyes: Denies: blurry vision or eye discomfort ENMT: Denies: throat pain or dental pain Card: Denies: chest pain Resp: Reports: non-productive cough GI: Denies: abdominal pain, nausea, vomiting or diarrhea : Denies: dysuria Musc: Denies: neck pain or back pain Skin/Breast: Denies: rash Neuro: Denies: headache(s) Psych: Denies: depression Henry/Lymph: Denies: easy bruising All/Imm: Denies: urticaria PFSH ED PFSH: Surgical History H/O circumcision H/O colonoscopy 2019 H/O malignant neoplasm of colon History of colon resection colon cancer Family History Father Cancer Grandfather Cancer Other Diabetes Denies family history of CAD (coronary artery disease) Anesthesia complication Bleeding disorder Social History Smoking and tobacco status: never smoked Alcohol intake: never Household members: friend(s) Marital status: Single Current occupational status: employed History of recent travel: No Physical Exam Const: COMMON NORMALS: no acute distress, patient oriented x3 and healthy appearing HENMT: COMMON NORMALS: normocephalic and atraumatic HEAD & SCALP: normocephalic and atraumatic Eye: COMMON NORMALS: Equal, round and reactive pupils present and EOMs intact bilaterally PUPIL: Yes Equal, round and reactive pupils present Neck/C-Spine: COMMON NORMALS: full ROM and supple Chest: COMMONS NORMALS: normal inspection of the chest and normal palpation of entire chest wall Resp: COMMON NORMALS: normal respiratory effort, No retractions, No use of accessory muscles and clear to auscultation bilaterally AUSCULTATION: clear to auscultation bilaterally Cardio: COMMON NORMALS: regular rate, regular rhythm and No murmurs present (Cardio) RATE: regular rate RHYTHM: regular rhythm GI: COMMON NORMALS: Normal to inspection, nondistended, normoactive bowel sounds present, Soft to palpation, non-tender and no masses PALPATION: Yes Soft to palpation Extremity: COMMON NORMALS: normal to inspection and full ROM Neuro: COMMON NORMALS: patient oriented x3, moves all extremities and no focal motor deficits Psych: COMMON NORMALS: mental status grossly normal, Normal thought process present and cooperative THOUGHT PROCESS: Normal thought process present Skin: COMMON NORMALS: no rashes or lesions noted and no wounds GENERAL SKIN EXAM: no rashes or lesions noted Course Vital Signs: Vital signs: Vital Signs Temperature 99.9 F H 11/22/20 21:46 Pulse Rate 95 11/23/20 01:17 Respiratory Rate 18 11/23/20 01:17 Blood Pressure 133/88 11/23/20 01:17 Pulse Oximetry 96 11/23/20 01:17 MDM - COVID MDM Narrative: Medical decision making narrative: Patient presents here with COVID-19. These likely causing his symptoms. He is well-appearing here in not requiring any oxygen. Patient's x-ray and blood work is normal. He is stable for discharge and is to return if worsening. Lab Data: Labs: Lab Results 11/23/20 11/23/20 11/23/20 Range/Units 01:30 01:30 01:52 WBC 5.4 (4.0-10.0) 10^3/ uL RBC 5.13 (4.1-5.3) 10^6/u L Hgb 14.8 (11.7-16.6) g/dL Hct 45.9 (42.0-52.0) % MCV 89.5 (80-94) fL MCH 28.8 (28.0-34.0) pg MCHC 32.2 (30.0-36.0) g/dL RDW 13.7 (12.1-15.1) % Plt Count 210 (130-400) 10^3/c mm MPV 10.2 (7.4-10.4) fL Neut % (Auto) 54.4 % Lymph % (Auto) 28.4 % [place] % (Auto) 15.3 % Eos % (Auto) 0.9 % Baso % (Auto) 0.6 % Neut # (Auto) 2.96 (1.8-7.7) 10^3/u L Lymph # (Auto) 1.5 (0.8-4.8) 10^3/u L [place] # (Auto) 0.8 (0.2-0.9) 10^3/u L Eos # (Auto) 0.1 (0.0-0.8) 10^3/u L Baso # (Auto) 0.0 (0.0-0.1) 10^3/u L Nucleated RBC % (a uto) 0 % Nucleated RBCs # 0.0 /100WBC Sodium 136 (136-145) mmol/L Potassium 4.1 (3.5-5.1) mmol/L Chloride 101 (98-107) mmol/L Carbon Dioxide 24 (22-29) mmol/L Anion Gap 15.1 (5-19) BUN 15 (6-20) mg/dL Creatinine 0.9 (0.7-1.2) mg/dL GFR Calculation 93.9 (90-130) mL/min Glucose 100 (65-115) mg/dL Calculated Osmolal ity 283 L (285-295) mOsm/k g Calcium 8.7 (8.5-10.5) mg/dL Total Bilirubin 0.3 (0.15-1.2) mg/dL AST 60 H (0-40) U/L ALT 91 H (0-41) U/L Alkaline Phosphata se 41 (40-130) IU/L Total Protein 7.5 (6.6-8.7) g/dL Albumin 4.4 (3.5-5.2) g/dL Globulin 3.1 (1.3-4.6) g/dL SARS-CoV-2 Ag (Rap id) Positive H (Negative) Imaging Data: CXR: Attestation: I personally reviewed and interpreted this imaging study as follows: My impression: No acute normality COVID Results: SARS-CoV-2 Antigen (Rapid) Positive (Negative) H 11/23/20 01:52 11/23/20 Discharge Plan Discharge Patient Disposition: Home Clinical Impression: COVID-19 Condition: Stable Prescriptions: No Action No Known Home Medications RF: 0 Discharge Orders: Discharge ED (Routine); Ordered 11/23/20 Ordered By: Gail Clark Discharge Diet: Advance as tolerated Discharge Activity: Resume usual activity Patient Instructions: Viral Syndrome (ED) Coding Level of Care Code ED Network Operations Technician for Judith Fwd Exam Comprehensive
[2020-11-23 02:04] LABS: Alanine Aminotransferase 91 U/L (0-41); Albumin Level 4.4 g/dL (3.5-5.2); Alkaline Phosphatase 41 IU/L (40-130); Aspartate Amino Transferase 60 U/L (0-40); Blood Urea Nitrogen 15 mg/dL (6-20); Calcium 8.7 mg/dL (8.5-10.5); Carbon Dioxide 24 mmol/L (22-29); Chloride 101 mmol/L (98-107); Globulin 3.1 g/dL (1.3-4.6); Glomerular Filtration Rate 93.9 mL/min (90-130); Glucose 100 mg/dL (65-115); Osmolality Calculated 283 mOsm/kg (285-295); Sodium 136 mmol/L (136-145); Total Bilirubin 0.3 mg/dL (0.15-1.2); Total Protein 7.5 g/dL (6.6-8.7)
[2020-11-23 02:10] LABS: Anion Gap 15.1 (5-19); Potassium 4.1 mmol/L (3.5-5.1)
[2020-11-23 02:19] LABS: SARS Covid-2 Antigen Positive (Negative)
[2020-11-23 02:53] VITALS: BP 111/72; PULSE 89; RESP 16; TEMP 36.9; O2SAT 94
== END 2020-11-23 02:54 | disposition home or self-care (01) ==
PROVIDERS: Emergency Provider Emergency Medicine
DX: U07.1 COVID-19 (principal); Z85.038 Personal history of other malignant neoplasm of large intestine
CPT/HCPCS: 71045; 80053; 85025; 87426; 96361; 96374; 99283; J1885; J7030

== ENCOUNTER 2021-05-02 12:29 | Outpatient (CLI) | payer MEDICAID, SELFPAY ==
[2021-05-02 12:57] LABS: Basophils # 0.1 10^3/uL (0.0-0.1); Basophils % 0.7 %; Eosinophils # 0.3 10^3/uL (0.0-0.8); Eosinophils % 3.9 %; Hematocrit 45.1 % (42.0-52.0); Lymphocytes # 2.6 10^3/uL (0.8-4.8); Lymphocytes % 36.8 %; Mean Corpuscular HGB Conc 33.3 g/dL (30.0-36.0); Mean Corpuscular Hemoglobin 29.8 pg (28.0-34.0); Mean Corpuscular Volume 89.5 fl (80-94); Mean Platelet Volume 10.4 fL (7.4-10.4); Monocytes # 0.6 10^3/uL (0.2-0.9); Monocytes % 8.2 %; Neutrophils # 3.47 10^3/uL (1.8-7.7); Nucleated Red Blood Cells % 0 %; Platelet Count 220 10^3/cmm (130-400); Red Blood Count 5.04 10^6/uL (4.1-5.3); Red Cell Distribution Width 12.9 % (12.1-15.1)
[2021-05-02 13:25] LABS: Carcinoembryonic Antigen 1.8 ng/mL (0.0-4.7)
[2021-05-02 13:36] LABS: Alanine Aminotransferase 74 U/L (0-41); Albumin Level 4.6 g/dL (3.5-5.2); Alkaline Phosphatase 33 IU/L (40-130); Anion Gap 19.1 (5-19); Aspartate Amino Transferase 40 U/L (0-40); Blood Urea Nitrogen 14 mg/dL (6-20); Calcium 8.8 mg/dL (8.5-10.5); Carbon Dioxide 20 mmol/L (22-29); Chloride 101 mmol/L (98-107); Globulin 3.1 g/dL (1.3-4.6); Glomerular Filtration Rate 107.6 mL/min (90-130); Glucose 108 mg/dL (65-115); Osmolality Calculated 283 mOsm/kg (285-295); Potassium 4.1 mmol/L (3.5-5.1); Sodium 136 mmol/L (136-145); Total Bilirubin 0.4 mg/dL (0.15-1.2); Total Protein 7.7 g/dL (6.6-8.7)
--- NOTE | 2021-05-02 14:45 | ONC FU_ITS ---
Dr. Carlos follow up note Patient: Boubacar Martinez Unit #: [id number]: [id number] Dicatated By: Benjie Carlos M.D.Date of Visit:May 02, 2021 Onc Med Follow-up/Prog Note History of Present Illness: Mr. Boubacar Martinez, is a 40-year-old gentleman with history of progressive abdominal pain and distention underwent CT scan of abdomen on 02/14/2019 which showed luminal narrowing in the mid to distal transverse colon and was admitted to hospital with symptoms suggestive of obstruction and nasogastric tube was placed in. Patient continued to have small amount of flatus and some liquid stools and underwent colonoscopy which confirmed adenocarcinoma and subsequently underwent extended right hemicolectomy on 02/17/2019 final pathology report showed low-grade infiltrating adenocarcinoma, invasive into focally through muscularis propria, into superficial serosal connective tissue. Tumor size was 4 x 3.5 x 0.5 cm. Margins were clear,pT3 18 lymph nodes were removed and none of them showed metastatic disease pN0 , No lymphovascular invasion or venous invasion seen, MSI MMR status was intact. Oncotype DX score 38, means risk of recurrence within 3-year-old surgery alone is 17% for T3 tumor. And patient in whom, more than 12 nodes were examined the 3 years recurrence risk inpatient for T3, MMR proficient the absolute reduction in risk is 2% for low risk patient and are patient has a low risk disease except his age he is young and MMR proficient. Patient has no family history of colon cancer.Patient was referred to GI oncology at [facility] where he was seen on 07/14/2019 and their recommendations were observation alone with CBC CMP and CEA every [address] scan of abdomen pelvis every 6 months. And also recommended colonoscopy in a year from the surgery which was done on 02/17/2019 and if no adenoma present then repeat in 3-5 years. Also recommended genetic counseling, CT scan of abdomen pelvis was done on 06/14/2019 at [facility], it showed postsurgical changes of right hemicolectomy with no evidence of local tumor recurrence or metastatic disease to the abdomen or pelvis. Underwent follow-up colonoscopy on December 01, 2019 which showed no abnormality noted, wide patent ileocolic anastomosis with no evidence of local recurrence Patient said in December 2019 he had 50 feet' fall and injured his upper back and fracture of scapula and multiple ribs for which he was transferred to [place] where he underwent upper back surgery and followed by rehab with good recovery Came for follow-up, denies any specific complaints, no fever chills, no nausea or vomiting, no diarrhea constipation, no melena or hematochezia, no abdominal pain, no jaundice, no weight loss, appetite is good Medications: This patient reports not taking external medications. Allergies: No Known Allergies. Review of Systems: Review of Systems is not available for this patient. Vital Signs: Vitals are not available for this patient. Performance Status: 0 - Fully active, able to carry on all predisease activities without restrictions. (ECOG) Physical Examination: ENMT - No mouth sores, no thrush, no jaundice, Respiratory - Lungs are clear to auscultation, Cardiovascular - Regular rate and rhythm of heart, Abdomen - Soft, bowel sounds present, Extremities - No visible edema. Lab/Imaging: Most recent lab results are not available for this patient. Impression: Low-grade infiltrating adenocarcinoma involving right colon status post right hemicolectomy done on 02/17/2019 Final pathology report showed 4 x 3.5 x 0.5 cm tumor with focal invasion through muscularis propria, into superficial serosal connective tissue. Clear surgical margins pT3 0 out of 18 lymph nodes showed metastatic disease pN0 No lymphovascular invasion or venous invasion seen. MSI MMR intact Stage II Oncotype DX score checked on 04/01/2019 showed 38, which means risk of recurrence within 3 years of surgery alone is about 17% And also inpatient with more than 12 lymph node examined, 3 years risk of recurrence was in lower in T3 MMR proficient patient an absolute reduction in risk range from 2% for the low risk to 6% for the high risk. Patient is a low risk based on above-mentioned information Follow-up colonoscopy done on December 01, 2019 showed no abnormality no evidence of recurrence at anastomosis site. Plan: Discussed with patient regarding his labs white blood count 7 hemoglobin 15 hematocrit 45.1 platelets 220,000 CMP within normal limits except ALT 74 compared to 63 previously CEA 1.8 Clinically, patient doing well with no new signs suggestive of disease progression, his CEA and lab work-up is within normal range except isolated elevated ALT which could be due to fatty liver, Or alcohol use but patient denies, will monitor and he will return to clinic in 6 months with CBC CMP and CEA Signed By: Benjie Carlos M.D. <<Signature on File>>
== END 2021-05-02 12:30 | disposition home or self-care (01) ==
LOC: ONCMED 12:31
PROVIDERS: Visit Provider Internal Medicine Hematology & Oncology
DX: C18.9 Malignant neoplasm of colon, unspecified (principal); Z90.49 Acquired absence of other specified parts of digestive tract
CPT/HCPCS: 36415; 80053; 82378; 85025; 99214

== ENCOUNTER → 2021-06-05 11:32 | Outpatient (BNVA) | payer MEDICAID, SELFPAY | PROVIDERS: Visit Provider Family Medicine | DX: R74.8 Abnormal levels of other serum enzymes (principal); Z13.220 Encounter for screening for lipoid disorders; Z13.6 Encounter for screening for cardiovascular disorders; Z85.038 Personal history of other malignant neoplasm of large intestine | CPT/HCPCS: 80061 ==

== ENCOUNTER 2021-09-07 07:27 | Day surgery (SDC) | payer MEDICAID, SELFPAY ==
[2021-09-05 12:45] VITALS: BMI 37.6
--- NOTE | 2021-09-07 07:06 | P.HP_ITS ---
Same Day Surgery H&P Indication for Procedure/HPI DATE OF PROCEDURE: September 07, 2021 CHIEF COMPLAINT/INDICATIONFOR SURGICAL PROCEDURE: History of colon cancer PREOP DIAGNOSIS: History of colon cancer PLANNED PROCEDURE: Operation Date: 09/07/21 08:30 Proposed Procedures p Colonoscopy [id number](Not Applicable) - Sterling Newton MD 10/28/2019 This is a pleasant 39 years old gentleman referred to my practice to discuss surveillance colonoscopy according to his description had a colon cancer and was resected in the form of Exploratory laparotomy with extended right hemicolectomy last year, patient comes today and he denies any complaints or bleeding per rectum, he was referred to my practice to consider surveillance colonoscopy. Recent CT chest abdomen pelvis were done for surveillance purposes and showed: FINDINGS: Pulmonary arteries: There is no evidence of filling defects within the pulmonary arterial circulation to suggest pulmonary embolism. Aorta: There is no evidence of aortic dissection or aneurysm. Lungs: There is some dependent atelectasis at the lung bases. Pleural space: Unremarkable. No pneumothorax. No pleural effusion. Heart: Unremarkable. No cardiomegaly. No pericardial effusion. Lymph nodes: Unremarkable. No enlarged lymph nodes. Bones/joints: There is mild degenerative change in the thoracic spine with scoliosis concave to the left. Soft tissues: Unremarkable. IMPRESSION: Mild basilar atelectasis. No evidence of pulmonary embolism. COMPARISON: CT abdomen pelvis w con* [id number] 02/14/2019 9:28:24 PM FINDINGS: Liver: Liver shows diffusely decreased density in keeping with fatty change. There is some areas of greater density in the liver representing portions which are relatively spared of fatty change. There is no focal mass within the liver. Gallbladder and bile ducts: The gallbladder is normal. Pancreas: The pancreas is normal. Spleen: The spleen is normal. Adrenals: The adrenal glands are normal. Kidneys and ureters: The kidneys are normal. Stomach and bowel: There has been right hemicolectomy. Colon is not distended but there does appear to be some mural thickening of the distal half of the descending colon which could represent some nonspecific colitis. There is no evidence for diverticulitis. There is no evidence of intestinal obstruction. There is some mildly thickened small bowel loops in the mid abdomen which may represent some nonspecific enteritis. Appendix: No evidence of appendicitis. Intraperitoneal space: There is no evidence of free intraperitoneal fluid. Vasculature: Unremarkable. No abdominal aortic aneurysm. Lymph nodes: Unremarkable. No enlarged lymph nodes. Bladder: Unremarkable as visualized. Reproductive: Unremarkable as visualized. Bones/joints: Unremarkable. No acute fracture. Soft tissues: Unremarkable. CT/CT angio chest w abd pel w con IMPRESSION: 1. Fatty liver 2. Colitis of the descending colon 3. Mild nonspecific enteritis. 4. Postsurgical changes of right hemicolectomy. 12/01/2019 Patient undergone surveillance colonoscopy and showed wide patent ileocolic anastomosis without evidence of local recurrence. 06/21/2021 Patient comes today for evaluation for repeat surveillance colonoscopy.? Denies any constitutional symptoms or bleeding per rectum except only on wiping. 09/07/2021 Patient comes today for surveillance colonoscopy ROS All systems have been reviewed negative except as for the above or per problem list. Medications/Allergies* Home Medications Medication Instructions Recorded Confirmed Type No Known Home Medications 11/29/19 09/05/21 History Allergies/Adverse Reactions Allergy/AdvReac Type Severity Reaction Status Date / Time No Known Allergies Allergy Verified 06/22/21 15:59 Pertinent History/Comorbid Conditions* Surgical History (Updated 10/29/19 @ 13:15 by Sterling Newton MD) H/O circumcision H/O colonoscopy 2018 H/O malignant neoplasm of colon History of colon resection colon cancer Family History (Updated 10/28/19 @ 11:23 by Britney Cortez LPN) Diabetes Cancer Father Grandfather Denies family history of CAD (coronary artery disease) Anesthesia complication Bleeding disorder Social History Smoking and tobacco status: never smoked Alcohol intake: never Household members: friend(s) Marital status: Single Current occupational status: employed History of recent travel: No Pertinent Exam Findings alert, oriented x 3, regular rate & rhythm and procedure specific exam findings (Abdominal exam abdominal examination nontender nondistended soft) Pertinent Data Midline scar Recommendations Surgery/Procedure today (Surveillance colonoscopy) Other Plans: Patient is patient is complaining of left-sided chest wall pain. I did encourage him to discuss with Dr. Carlos potential obtaining PET/CT to rule out potential underlying metastatic disease if any. Coding Level of Care Code Acute Measurement Department Chief Clerk for Judith Torres
[2021-09-07 07:45] VITALS: BP 125/92; PULSE 88; RESP 18; TEMP 36.1; O2SAT 93
[2021-09-07] MEDS: sodium chloride 0.9% 1,000 ML 30 ML IV (07:57)
--- NOTE | 2021-09-07 07:58 | ANES.PREANE2 ---
Pre-Anesthetic Assessment Height/Weight: Height 1.8 m Weight 122.47 kg Temp Pulse Resp BP Pulse Ox 96.9 F L 88 18 125/92 93 09/07/21 07:45 09/07/21 07:45 09/07/21 07:45 09/07/21 07:45 09/07/21 07:45 Preop Diagnosis: History of colon cancer Operation Date: 09/07/21 08:30 Proposed Procedures p Colonoscopy [id number](Not Applicable) - Sterling Newton MD Familial anesthetic complications: none Was Beta Carmen taken within 24 hours: N/A Was Clonidine taken within 24 hours: N/A Last intake: Intake Last Liquid Date 09/06/21 Last Liquid Time 22:00 Last Solid Date 09/05/21 Last Solid Time 18:00 Social No alcohol and No tobacco Exam alert, oriented x 3, clear to auscultation bilaterally and regular rate & rhythm Airway Mallampati: Class III Dentition: chipped Pulmonary hx covid 19 Hepatic fatty liver GI hx colon cancer Anesthetic Plan ASA status: 2 Anesthesia: MAC Risk of > 500 ml blood loss (7ml/kg in children): No Medications/Allergies Home Medications Medication Instructions Recorded Confirmed Last Taken Type No Known Home Medications 11/29/19 09/05/21 Unknown History Allergies Allergy/AdvReac Type Severity Reaction Status Date / Time No Known Allergies Allergy Verified 06/22/21 15:59 Current Medications Generic Name Dose Route Start Last Admin Trade Name Freq PRN Reason Stop Dose Admin Sodium Chloride 1,000 mls @ 30 mls/hr 09/07/21 07:30 09/07/21 07:57 Sodium Chloride 0.9% IV 30 mls/hr .Q24H JERONIMO Administration PFSH Anesthesia Surgical History H/O circumcision H/O colonoscopy 2019 H/O malignant neoplasm of colon History of colon resection colon cancer Family History Father Cancer Grandfather Cancer Other Diabetes Denies family history of CAD (coronary artery disease) Anesthesia complication Bleeding disorder Social History Smoking and tobacco status: never smoked Alcohol intake: never Household members: friend(s) Marital status: Single Current occupational status: employed History of recent travel: No Data Anesthesia Cardiac Studies: No Data to Display
[2021-09-07 08:45] VITALS: BP 175/101; PULSE 99; RESP 20; TEMP 36.4; O2SAT 95
[2021-09-07 09:08] VITALS: BP 144/99; PULSE 80; RESP 18; O2SAT 94
--- NOTE | 2021-09-07 15:56 | ANE.PACU2 ---
Inpatient post-anesthesia follow up: Airway intact: Yes Vital signs: Temperature 97.6 F Pulse Rate 80 Respiratory Rate 18 Blood Pressure 144/99 Pulse Oximetry 94 Oxygen Delivery Me thod Room Air Oxygen Flow Rate Fraction of Inspir ed Oxygen Hydration adequate: Yes Nausea and vomiting: No Pain level: 1 Mental status: Baseline
== END 2021-09-07 09:25 | disposition home or self-care (01) ==
PROVIDERS: Visit Provider Surgery
PROC: 0DJD8ZZ Inspection of Lower Intestinal Tract, Via Natural or Artificial Opening Endoscopic (ICD-10-PCS; CPT 45378; principal; 2021-09-07 08:30)
DX: Z12.11 Encounter for screening for malignant neoplasm of colon (principal); Z85.038 Personal history of other malignant neoplasm of large intestine; Z90.49 Acquired absence of other specified parts of digestive tract; K76.0 Fatty (change of) liver, not elsewhere classified; K52.9 Noninfective gastroenteritis and colitis, unspecified; D12.8 Benign neoplasm of rectum
CPT/HCPCS: 45380; 88305; J2704; J7030

== ENCOUNTER 2022-02-28 14:55 | Oncology outpatient (recurring) (ONCR) | payer MEDICAID, SELFPAY | END 2022-03-11 23:59 | disposition home or self-care (01) | PROVIDERS: Visit Provider Internal Medicine Hematology & Oncology | DX: Z08 Encounter for follow-up examination after completed treatment for malignant neoplasm (principal); Z85.038 Personal history of other malignant neoplasm of large intestine | CPT/HCPCS: 36415; 80053; 82378; 85025; 99213; 99214 ==

== ENCOUNTER → 2022-05-20 15:29 | Outpatient (BNVA) | payer MEDICAID, SELFPAY | PROVIDERS: PCP Family Medicine; Visit Provider Otolaryngology | DX: G47.33 Obstructive sleep apnea (adult) (pediatric) (principal); J35.1 Hypertrophy of tonsils; Z68.39 Body mass index [BMI] 39.0-39.9, adult | CPT/HCPCS: 99204 ==

== ENCOUNTER 2022-05-27 07:06 | Outpatient (CLI) | payer MEDICAID, SELFPAY ==
[2022-05-27] MEDS: iohexol 350 mg/mL 500 mL Btl (per mL) IV (08:39)
[2022-05-27] MEDS: iohexol 350 mg/mL 500 mL Btl (per mL) PO (08:40)
--- NOTE | 2022-05-27 09:00 | CT_ITS ---
WS: [id number] CT ABDOMEN PELVIS TECHNIQUE: Contrast-enhanced CT of the abdomen and pelvis with coronal and sagittal reformatted image s. CLINICAL INFORMATION: history of colon ca COMPARISON: CT abdomen pelvis and CT August 14, 2019 DLP: 1066.[address] scans at [facility] use at least one of these dose optimization techniques: automated e xposure control; mA and/or kV adjustment per patient size (includes targeted exams where dose is matc hed to clinical indication); or iterative reconstruction. FINDINGS: Prior postoperative changes RIGHT hemicolectomy with ileocolic anastomosis. Normal sigmoid colon. Nor mal descending LEFT colon. Normal ileocolic anastomosis. No evidence of recurrent mass or lesion. Mild hepatomegaly. Diffuse fatty infiltration liver. Normal portal vein and splenic vein. Normal sple en. Normal GE junction. Lung bases are well aerated. Normal gallbladder. Normal pancreatic parenchymal enhancement. Adrenal g lands are normal. Normal renal parenchymal enhancement. No hydronephrosis. Normal caliber abdominal aorta. Disc space narrowing worse L5-S1. CT/CT abdomen pelvis w con* [id number] IMPRESSION: 1. Prior postoperative changes RIGHT hemicolectomy with Ileocolic anastomosis. No evidence of recurrent mass or lesion at the anastomosis. 2. Normal LEFT colon and sigmoid colon. 3. No adenopathy in the abdomen or pelvis. 4. Mild hepatomegaly with diffuse fatty infiltration of the liver. 5. No other suspicious findings.
== END 2022-05-27 07:07 | disposition home or self-care (01) ==
LOC: RAD 07:07
PROVIDERS: PCP Family Medicine; Visit Provider Internal Medicine Hematology & Oncology
DX: Z85.038 Personal history of other malignant neoplasm of large intestine (principal)
CPT/HCPCS: 74177; Q9967

== ENCOUNTER 2022-06-12 12:00 | Outpatient (CLI) | payer MEDICAID, SELFPAY | END 2022-06-12 12:01 | disposition home or self-care (01) | LOC: SLEEP 06-17 12:03 | PROVIDERS: PCP Family Medicine; Visit Provider Otolaryngology | DX: R06.83 Snoring (principal); G47.33 Obstructive sleep apnea (adult) (pediatric) | CPT/HCPCS: G0399 ==

== ENCOUNTER 2022-06-19 11:43 | Oncology outpatient (recurring) (ONCR) | payer MEDICAID, SELFPAY ==
[2022-06-19 12:25] LABS: Basophils # 0.1 10^3/uL (0.0-0.1); Basophils % 0.6 %; Eosinophils # 0.2 10^3/uL (0.0-0.8); Eosinophils % 2.8 %; Hematocrit 49.6 % (42.0-52.0); Hemoglobin 16.1 g/dL (11.7-16.6); Lymphocytes # 2.7 10^3/uL (0.8-4.8); Lymphocytes % 34.2 %; Mean Corpuscular HGB Conc 32.5 g/dL (30.0-36.0); Mean Corpuscular Hemoglobin 28.9 pg (28.0-34.0); Mean Platelet Volume 10.3 fL (7.4-10.4); Monocytes # 0.6 10^3/uL (0.2-0.9); Monocytes % 7.4 %; Neutrophils # 4.24 10^3/uL (1.8-7.7); Neutrophils % 54.7 %; Nucleated Red Blood Cells % 0 %; Platelet Count 246 10^3/cmm (130-400); Red Blood Count 5.57 10^6/uL (4.1-5.3); Red Cell Distribution Width 12.9 % (12.1-15.1); White Blood Count 7.8 10^3/uL (4.0-10.0)
[2022-06-19 12:56] LABS: Carcinoembryonic Antigen 1.9 ng/mL (0.0-4.7)
[2022-06-19 13:07] LABS: Alanine Aminotransferase 77 U/L (0-41); Albumin Level 4.9 g/dL (3.5-5.2); Alkaline Phosphatase 34 U/L (40-130); Anion Gap 16.4 (5-19); Aspartate Amino Transferase 49 U/L (0-40); Blood Urea Nitrogen 14 mg/dL (6-20); Calcium 9.5 mg/dL (8.5-10.5); Carbon Dioxide 26 mmol/L (22-29); Chloride 96 mmol/L (98-107); Globulin 3.4 g/dL (1.3-4.6); Glomerular Filtration Rate 107.1 mL/min (90-130); Glucose 99 mg/dL (65-115); Osmolality Calculated 279 mOsm/kg (285-295); Potassium 4.4 mmol/L (3.5-5.1); Sodium 134 mmol/L (136-145); Total Bilirubin 0.6 mg/dL (0.15-1.2); Total Protein 8.3 g/dL (6.6-8.7)
== END 2022-07-09 23:59 | disposition home or self-care (01) ==
PROVIDERS: PCP Family Medicine; Visit Provider Internal Medicine Hematology & Oncology
DX: Z08 Encounter for follow-up examination after completed treatment for malignant neoplasm (principal); Z85.038 Personal history of other malignant neoplasm of large intestine; K76.0 Fatty (change of) liver, not elsewhere classified; R74.01 Elevation of levels of liver transaminase levels; Z90.49 Acquired absence of other specified parts of digestive tract
CPT/HCPCS: 36415; 80053; 82378; 85025; 99214

== ENCOUNTER 2022-08-22 20:00 | Outpatient (CLI) | payer MEDICAID, SELFPAY | END 2022-08-22 20:01 | disposition home or self-care (01) | LOC: SLEEP 08-23 05:01 | PROVIDERS: PCP Family Medicine; Visit Provider Otolaryngology | DX: G47.33 Obstructive sleep apnea (adult) (pediatric) (principal) | CPT/HCPCS: 95811 ==

== ENCOUNTER → 2022-11-01 11:33 | Outpatient (BNVA) | payer MEDICAID, SELFPAY | PROVIDERS: PCP Family Medicine; Visit Provider Otolaryngology | DX: G47.33 Obstructive sleep apnea (adult) (pediatric) (principal) | CPT/HCPCS: 99213 ==

== ENCOUNTER 2022-12-19 11:59 | Oncology outpatient (recurring) (ONCR) | payer MEDICAID, SELFPAY ==
[2022-12-19 12:17] VITALS: BP 119/79; PULSE 69; RESP 18; TEMP 36.8; O2SAT 97
[2022-12-19 12:58] LABS: Alanine Aminotransferase 50 U/L (0-41); Albumin Level 4.4 g/dL (3.5-5.2); Alkaline Phosphatase 28 U/L (40-130); Anion Gap 12.4 (5-19); Aspartate Amino Transferase 29 U/L (0-40); Blood Urea Nitrogen 11 mg/dL (6-20); Calcium 9.1 mg/dL (8.5-10.5); Carbon Dioxide 27 mmol/L (22-29); Chloride 103 mmol/L (98-107); Globulin 3.1 g/dL (1.3-4.6); Glomerular Filtration Rate 106.5 mL/min (90-130); Glucose 99 mg/dL (65-115); Osmolality Calculated 285 mOsm/kg (285-295); Potassium 4.4 mmol/L (3.5-5.1); Sodium 138 mmol/L (136-145); Total Bilirubin 0.3 mg/dL (0.15-1.2); Total Protein 7.5 g/dL (6.6-8.7)
[2022-12-19 13:24] LABS: Basophils % 0.6 %; Eosinophils # 0.2 10^3/uL (0.0-0.8); Eosinophils % 2.9 %; Hematocrit 45.1 % (42.0-52.0); Hemoglobin 14.7 g/dL (11.7-16.6); Lymphocytes # 2.3 10^3/uL (0.8-4.8); Lymphocytes % 33.3 %; Mean Corpuscular HGB Conc 32.6 g/dL (30.0-36.0); Mean Corpuscular Hemoglobin 29.1 pg (28.0-34.0); Mean Corpuscular Volume 89.3 fl (80-94); Mean Platelet Volume 10.8 fL (7.4-10.4); Monocytes # 0.6 10^3/uL (0.2-0.9); Monocytes % 8.4 %; Neutrophils # 3.71 10^3/uL (1.8-7.7); Neutrophils % 54.5 %; Nucleated Red Blood Cells % 0 %; Platelet Count 233 10^3/cmm (130-400); Red Blood Count 5.05 10^6/uL (4.1-5.3); Red Cell Distribution Width 13.2 % (12.1-15.1); White Blood Count 6.8 10^3/uL (4.0-10.0)
[2022-12-19 13:44] LABS: Carcinoembryonic Antigen 2.3 ng/mL (0.0-4.7)
== END 2023-01-09 23:59 | disposition home or self-care (01) ==
PROVIDERS: Internal Medicine Medical Oncology; PCP Family Medicine; Visit Provider Internal Medicine Hematology & Oncology
DX: Z08 Encounter for follow-up examination after completed treatment for malignant neoplasm (principal); Z85.038 Personal history of other malignant neoplasm of large intestine; Z90.49 Acquired absence of other specified parts of digestive tract
CPT/HCPCS: 36415; 80053; 82378; 85025; 99213

== ENCOUNTER 2023-06-17 15:13 | Outpatient (CLI) | payer MEDICAID, SELFPAY ==
[2023-06-17] MEDS: iohexol 350 mg/mL 500 mL Btl (per mL) PO (15:27)
[2023-06-17] MEDS: iohexol 350 mg/mL 500 mL Btl (per mL) IV (16:26)
--- NOTE | 2023-06-17 16:30 | CTR_ITS ---
PROCEDURE INFORMATION: Exam: CT Abdomen And Pelvis With Contrast Exam date and time: 06/17/2023 4:20 PM Age: 42 years old Clinical indication: Condition or disease; Cancer; Other: Colon; Prior surgery; Surgery date: 6+ months; Additional info: Follow up, to be completed just prior to next onc visit TECHNIQUE: Imaging protocol: Computed tomography of the abdomen and pelvis with contrast. Radiation optimization: All CT scans at this facility use at least one of these dose optimization techniques: automated exposure control; mA and/or kV adjustment per patient size (includes targeted exams where dose is matched to clinical indication); or iterative reconstruction. Contrast material: OMNI 350; Contrast volume: 95 ml; Contrast route: INTRAVENOUS (IV); COMPARISON: CT abdomen pelvis w con* [id number] 05/27/2022 8:29 AM RADIATION DOSE METRICS: Total DLP (mGy-cm): 984.05 FINDINGS: Lungs: Small amounts of scarring and/or subsegmental atelectasis in the lung bases. Not significantly changed. Liver: Unchanged diffuse fatty infiltration of the liver. Unchanged mild hepatomegaly. Otherwise, unremarkable. Gallbladder and bile ducts: Normal. No calcified stones. No ductal dilation. Pancreas: Normal. No ductal dilation. Spleen: Normal. No splenomegaly. Adrenal glands: Normal. No mass. Kidneys and ureters: Normal. No hydronephrosis. Stomach and bowel: Stable changes of right hemicolectomy and ileocolonic anastomosis. Otherwise, unremarkable. Appendix: Appendectomy. Intraperitoneal space: Unremarkable. No free air. No significant fluid collection. Vasculature: Unremarkable. No abdominal aortic aneurysm. Lymph nodes: Unremarkable. No enlarged lymph nodes. Urinary bladder: Unremarkable as visualized. Reproductive: Unremarkable as visualized. Bones/joints: Unchanged mild scoliosis and mild and moderate multilevel spondylosis. Unchanged mild T12 vertebral body compression deformity. Otherwise, unremarkable. Soft tissues: Unremarkable visualized body wall. Otherwise, unremarkable soft tissues. CT/CT abdomen pelvis w con* [id number] IMPRESSION: 1. No acute findings. 2. Additional details as above. Unchanged.
== END 2023-06-17 15:14 | disposition home or self-care (01) ==
LOC: RAD 15:14
PROVIDERS: PCP Family Medicine; Visit Provider Internal Medicine Medical Oncology
DX: Z85.038 Personal history of other malignant neoplasm of large intestine (principal)
CPT/HCPCS: 74177; Q9967

== ENCOUNTER 2023-06-19 12:42 | Oncology outpatient (recurring) (ONCR) | payer MEDICAID, SELFPAY ==
[2023-06-19 13:13] LABS: Basophils % 0.5 %; Eosinophils # 0.2 10^3/uL (0.0-0.8); Eosinophils % 2.6 %; Hematocrit 44.9 % (37-53); Lymphocytes # 2.6 10^3/uL (0.8-4.8); Lymphocytes % 39.8 %; Mean Corpuscular Hemoglobin 29.4 pg (27-33); Mean Corpuscular Volume 89.3 fl (82-101); Mean Platelet Volume 9.8 fL (7.4-10.4); Monocytes # 0.5 10^3/uL (0.2-0.9); Monocytes % 7.9 %; Neutrophils # 3.16 10^3/uL (1.8-7.7); Nucleated Red Blood Cells % 0 %; Platelet Count 244 10^3/cmm (157-399); Red Blood Count 5.03 10^6/uL (3.85-5.65); Red Cell Distribution Width 13.3 % (12.1-15.1); White Blood Count 6.44 10^3/uL (3.29-11.43)
[2023-06-19 13:40] LABS: Carcinoembryonic Antigen 1.6 ng/mL (0.0-4.7)
[2023-06-19 13:51] LABS: Alanine Aminotransferase 52 U/L (0-41); Albumin Level 4.6 g/dL (3.5-5.2); Alkaline Phosphatase 30 U/L (40-130); Anion Gap 17.1 (5-19); Aspartate Amino Transferase 38 U/L (0-40); Blood Urea Nitrogen 16 mg/dL (6-20); Calcium 9.3 mg/dL (8.5-10.5); Carbon Dioxide 26 mmol/L (22-29); Chloride 100 mmol/L (98-107); Globulin 3.4 g/dL (1.3-4.6); Glomerular Filtration Rate 106.5 mL/min (90-130); Glucose 104 mg/dL (65-115); Osmolality Calculated 289 mOsm/kg (285-295); Potassium 4.1 mmol/L (3.5-5.1); Sodium 139 mmol/L (136-145); Total Bilirubin 0.5 mg/dL (0.15-1.2)
== END 2023-07-10 23:59 | disposition home or self-care (01) ==
LOC: ONCMED 12:43
PROVIDERS: Internal Medicine Medical Oncology; PCP Family Medicine; Visit Provider Internal Medicine Hematology & Oncology
DX: Z08 Encounter for follow-up examination after completed treatment for malignant neoplasm (principal); Z85.038 Personal history of other malignant neoplasm of large intestine; Z90.49 Acquired absence of other specified parts of digestive tract
CPT/HCPCS: 36415; 80053; 82378; 85025; 99214

== ENCOUNTER → 2023-07-03 08:01 | Outpatient (BNVA) | payer MEDICAID, SELFPAY | PROVIDERS: PCP Family Medicine; Referring Provider Nurse Practitioner Family; Visit Provider Surgery | DX: Z12.11 Encounter for screening for malignant neoplasm of colon (principal); Z85.038 Personal history of other malignant neoplasm of large intestine | CPT/HCPCS: 99214 ==

== ENCOUNTER 2023-08-06 07:03 | Day surgery (SDC) | payer MEDICAID, SELFPAY ==
[2023-08-06 07:28] VITALS: BP 111/80; PULSE 92; RESP 16; TEMP 36.7; O2SAT 95; BMI 37.6
[2023-08-06] MEDS: sodium chloride 0.9% 1,000 ML 30 ML IV (07:35)
--- NOTE | 2023-08-06 07:42 | ANES.PREANE2 ---
Pre-Anesthetic Assessment Height/Weight: Height 1.8 m Weight 122.47 kg Temp Pulse Resp BP Pulse Ox O2 Del Method 98.1 F 92 16 111/80 95 Room Air 08/06/23 07:28 08/06/23 07:28 08/06/23 07:28 08/06/23 07:28 08/06/23 07:28 08/06/23 07:28 Operation Date: 08/06/23 08:30 Proposed Procedures p [id number] screen colonoscopy G0121 screen colon a risk Z12.11(Not Applicable) - London Love DO Familial anesthetic complications: None Was Beta Carmen taken within 24 hours: N/A Was Clonidine taken within 24 hours: N/A Last intake: Intake Last Liquid Date 08/05/23 Last Liquid Time 21:00 Last Solid Date 08/04/23 Last Solid Time 19:30 Social No alcohol and No tobacco Exam alert, oriented x 3, clear to auscultation bilaterally and regular rate & rhythm Airway Mallampati: Class IV Dentition: chipped Pulmonary Sleep Apnea GI colon cancer Metabolic Morbid Obesity Anesthetic Plan ASA status: 3 Anesthesia: MAC Risk of > 500 ml blood loss (7ml/kg in children): No Medications/Allergies Home Medications Medication Instructions Recorded Confirmed Last Taken Type fluticasone propionate 50 2 spray intranasal DAILY PRN nasal 12/19/22 08/06/23 2 Days Ago History mcg/actuation nasal congestion ~08/04/23 spray,suspension (Flonase Allergy Relief) triamcinolone acetonide 0.1 % 1 applic topical DAILY #30 grams 07/22/23 08/06/23 2 Days Ago Rx topical cream ~08/04/23 Allergies Allergy/AdvReac Type Severity Reaction Status Date / Time No Known Allergies Allergy Verified 08/06/23 07:36 Current Medications Generic Name Dose Route Start Last Admin Trade Name Freq PRN Reason Stop Dose Admin Sodium Chloride 1,000 mls @ 30 mls/hr 08/06/23 07:30 08/06/23 07:35 Sodium Chloride 0.9% IV 08/07/23 07:29 30 mls/hr .Q24H JERONIMO Administration PFSH Anesthesia Surgical History History of colon resection colon cancer H/O colonoscopy 2018 H/O malignant neoplasm of colon H/O circumcision Family History Father Cancer Grandfather Cancer Other Diabetes Denies family history of CAD (coronary artery disease) Anesthesia complication Bleeding disorder Social History Smoking and tobacco/nicotine status: never used tobacco/nicotine Alcohol intake: never Substance/Drug Use: never Household members: friend(s) Marital status: Single Current occupational status: employed Data Anesthesia Cardiac Studies: No Data to Display
--- NOTE | 2023-08-06 08:31 | PM.HP ---
Providers/Chief Complaint Primary Care Provider: Vicente Marie DO Chief Complaint: Z12.11 History of Present Illness Boubacar Martinez is a 43 year old male Review of Systems General: Reports: 10 or more systems reviewed and unremarkable except in HPI and below Medications/Allergies Home Medications Medication Instructions Recorded Confirmed Last Taken Type fluticasone propionate 50 2 spray intranasal DAILY PRN nasal 12/19/22 08/06/23 2 Days Ago History mcg/actuation nasal congestion ~08/04/23 spray,suspension (Flonase Allergy Relief) triamcinolone acetonide 0.1 % 1 applic topical DAILY #30 grams 07/22/23 08/06/23 2 Days Ago Rx topical cream ~08/04/23 Allergies Allergy/AdvReac Type Severity Reaction Status Date / Time No Known Allergies Allergy Verified 08/06/23 07:36 PFSH Acute PFSH: Surgical History History of colon resection colon cancer H/O colonoscopy 2018 H/O malignant neoplasm of colon H/O circumcision Family History Father Cancer Grandfather Cancer Other Diabetes Denies family history of CAD (coronary artery disease) Anesthesia complication Bleeding disorder Social History Smoking and tobacco/nicotine status: never used tobacco/nicotine Alcohol intake: never Substance/Drug Use: never Household members: friend(s) Marital status: Single Current occupational status: employed Vitals/I&O/Wt Last Vital Signs Temp 98.1 F 08/06/23 07:28 Pulse 92 08/06/23 07:28 Resp 16 08/06/23 07:28 BP 111/80 08/06/23 07:28 Pulse Ox 95 08/06/23 07:28 O2 Del Method Room Air 08/06/23 07:28 Weight last 48 hrs Weight 270 lb A&P Assessment and plan (1) H/O malignant neoplasm of colon: Plan Screening colonoscopy Attestations Medical Necessity Statement*: Home Coding Level of Care Code Acute Code for Chg Fwd Diagnoses H/O malignant neoplasm of colon Z85.038
[2023-08-06 08:51] VITALS: BP 109/75; PULSE 95; RESP 14; TEMP 36.1; O2SAT 95
[2023-08-06 09:03] VITALS: BP 134/85; PULSE 86; RESP 16; O2SAT 95
--- NOTE | 2023-08-06 09:25 | ANE.PACU2 ---
Inpatient post-anesthesia follow up: Airway intact: Yes Vital signs: Temperature 97 F Pulse Rate 86 Respiratory Rate 16 Blood Pressure 134/85 Pulse Oximetry 95 Oxygen Delivery Me thod Room Air Oxygen Flow Rate Fraction of Inspir ed Oxygen Hydration adequate: Yes Nausea and vomiting: No Pain level: 1 Mental status: Baseline
== END 2023-08-06 09:10 | disposition home or self-care (01) ==
PROVIDERS: PCP Family Medicine; Visit Provider Surgery
PROC: 0DJD8ZZ Inspection of Lower Intestinal Tract, Via Natural or Artificial Opening Endoscopic (ICD-10-PCS; CPT 45378; principal; 2023-08-06 08:30)
DX: Z12.11 Encounter for screening for malignant neoplasm of colon (principal); Z85.038 Personal history of other malignant neoplasm of large intestine; Z90.49 Acquired absence of other specified parts of digestive tract; G47.30 Sleep apnea, unspecified; E66.01 Morbid (severe) obesity due to excess calories; Z68.37 Body mass index [BMI] 37.0-37.9, adult
CPT/HCPCS: G0121; J2704; J7030

== ENCOUNTER 2023-11-17 07:02 | Outpatient (CLI) | payer MEDICAID, SELFPAY ==
--- NOTE | 2023-11-17 08:00 | CTR_ITS ---
PROCEDURE INFORMATION: Exam: CT Chest With Contrast; Diagnostic Exam date and time: 11/17/2023 8:15 AM Age: 43 years old Clinical indication: Condition or disease; Other: Colon cancer; Prior surgery; Surgery date: 6+ months; Additional info: Surveillance, please complete prior to oncology f/u on 12/16/23 TECHNIQUE: Imaging protocol: Diagnostic computed tomography of the chest with contrast. Radiation optimization: All CT scans at this facility use at least one of these dose optimization techniques: automated exposure control; mA and/or kV adjustment per patient size (includes targeted exams where dose is matched to clinical indication); or iterative reconstruction. Contrast material: OMNI 350; Contrast volume: 100 ml; Contrast route: INTRAVENOUS (IV); COMPARISON: CT angio chest w abd pel w con 08/14/2019 12:05 AM RADIATION DOSE METRICS: Total DLP (mGy-cm): 1599.84 FINDINGS: Lungs: Unremarkable. No consolidation. No masses. Pleural spaces: Unremarkable. No pneumothorax. No pleural effusion. Heart: Unremarkable. No cardiomegaly. No pericardial effusion. Lymph nodes: Unremarkable. No enlarged lymph nodes. Vasculature: Unremarkable. No aortic aneurysm. Bones/joints: Unremarkable. No acute fracture. Soft tissues: Unremarkable. PROCEDURE INFORMATION: Exam: CT Abdomen And Pelvis With Contrast Exam date and time: 11/17/2023 8:15 AM Age: 43 years old Clinical indication: Condition or disease; Other: Colon cancer; Prior surgery; Surgery date: 6+ months; Additional info: Surveillance, please complete prior to oncology f/u on 12/16/23 TECHNIQUE: Imaging protocol: Computed tomography of the abdomen and pelvis with contrast. Radiation optimization: All CT scans at this facility use at least one of these dose optimization techniques: automated exposure control; mA and/or kV adjustment per patient size (includes targeted exams where dose is matched to clinical indication); or iterative reconstruction. Contrast material: OMNI 350; Contrast volume: 100 ml; Contrast route: INTRAVENOUS (IV); COMPARISON: CT abdomen pelvis w con* [id number] 06/17/2023 4:20 PM RADIATION DOSE METRICS: Total DLP (mGy-cm): 1599.84 FINDINGS: Liver: Marked hepatic steatosis. Gallbladder and biliary ducts: Normal. No calcified stones. No ductal dilation. Pancreas: Normal. No ductal dilation. Spleen: Normal. No splenomegaly. Adrenal glands: Normal. No mass. Kidneys and ureters: Normal. No hydronephrosis. Stomach and bowel: Unremarkable. No obstruction. No mucosal thickening. Appendix: No evidence of appendicitis. Intraperitoneal space: Unremarkable. No free air. No significant fluid collection. Vasculature: Unremarkable. No abdominal aortic aneurysm. Lymph nodes: Unremarkable. No enlarged lymph nodes. Urinary bladder: Unremarkable as visualized. Reproductive: Unremarkable as visualized. Bones/joints: Deformity from old left rib fractures. Soft tissues: Unremarkable. CT/CT chest abdpel w/*[id number] IMPRESSION: No acute findings. IMPRESSION: Hepatic steatosis. No active disease.
[2023-11-17] MEDS: iohexol 350 mg/mL 500 mL Btl (per mL) IV (08:33)
[2023-11-17] MEDS: iohexol 350 mg/mL 500 mL Btl (per mL) PO (08:33)
== END 2023-11-17 07:03 | disposition home or self-care (01) ==
LOC: RAD 07:02
PROVIDERS: PCP Family Medicine; Visit Provider Nurse Practitioner Family
DX: Z85.038 Personal history of other malignant neoplasm of large intestine (principal); K76.0 Fatty (change of) liver, not elsewhere classified
CPT/HCPCS: 71260; 74177; Q9967

== ENCOUNTER 2023-12-26 08:01 | Oncology outpatient (recurring) (ONCR) | payer MEDICAID, SELFPAY ==
[2023-12-26 08:22] LABS: Basophils # 0.1 10^3/uL (0.0-0.1); Basophils % 0.7 %; Eosinophils # 0.2 10^3/uL (0.0-0.8); Eosinophils % 2.8 %; Hematocrit 45.9 % (37-53); Lymphocytes # 2.5 10^3/uL (0.8-4.8); Lymphocytes % 33.6 %; Mean Corpuscular HGB Conc 33.6 g/dL (30-55); Mean Corpuscular Hemoglobin 29.3 pg (27-33); Mean Corpuscular Volume 87.4 fl (82-101); Monocytes # 0.7 10^3/uL (0.2-0.9); Monocytes % 9.7 %; Neutrophils # 3.97 10^3/uL (1.8-7.7); Neutrophils % 52.8 %; Nucleated Red Blood Cells % 0 %; Platelet Count 246 10^3/cmm (157-399); Red Blood Count 5.25 10^6/uL (3.85-5.65); Red Cell Distribution Width 13.5 % (12.1-15.1); White Blood Count 7.51 10^3/uL (3.29-11.43)
[2023-12-26 08:49] LABS: Carcinoembryonic Antigen 3.1 ng/mL (0.0-4.7)
[2023-12-26 09:00] LABS: Alanine Aminotransferase 77 U/L (0-41); Albumin Level 4.7 g/dL (3.5-5.2); Alkaline Phosphatase 35 U/L (40-130); Anion Gap 20.4 (5-19); Aspartate Amino Transferase 37 U/L (0-40); Blood Urea Nitrogen 20 mg/dL (6-20); Calcium 9.3 mg/dL (8.5-10.5); Carbon Dioxide 22 mmol/L (22-29); Chloride 100 mmol/L (98-107); Globulin 3.5 g/dL (1.3-4.6); Glomerular Filtration Rate 81.9 mL/min (90-130); Glucose 115 mg/dL (65-115); Osmolality Calculated 290 mOsm/kg (285-295); Potassium 4.4 mmol/L (3.5-5.1); Sodium 138 mmol/L (136-145); Total Bilirubin 0.5 mg/dL (0.15-1.2); Total Protein 8.2 g/dL (6.6-8.7)
== END 2024-01-10 23:59 | disposition home or self-care (01) ==
PROVIDERS: Nurse Practitioner Family; PCP Family Medicine; Visit Provider Internal Medicine Medical Oncology
DX: Z85.038 Personal history of other malignant neoplasm of large intestine (principal); K76.0 Fatty (change of) liver, not elsewhere classified
CPT/HCPCS: 36415; 80053; 82378; 85025; 99214

== ENCOUNTER → 2024-01-30 07:52 | Outpatient (BNVA) | payer MEDICAID, SELFPAY | PROVIDERS: PCP Family Medicine; Visit Provider Family Medicine | DX: Z13.220 Encounter for screening for lipoid disorders (principal); Z13.6 Encounter for screening for cardiovascular disorders | CPT/HCPCS: 80061 ==

== ENCOUNTER 2024-10-08 20:42 | Emergency (ER) | payer OTHER, SELFPAY ==
[2024-10-08 20:43] VITALS: BP 135/89; PULSE 87; RESP 16; TEMP 36.8; O2SAT 97; BMI 39.2
--- NOTE | 2024-10-08 20:46 | ECG_ITS ---
[facility] Test Date: 2024-10-08 Pat Name: Boubacar Martinez Department: Room: Gender: Male Digital Sales Director: : 1980 Requested By: Gail Clark Order Number: [id number] Masoud MD: Jerry Anguiano M.D. Measurements Intervals [place] Rate: 87 P: 38 [place]: 167 QRS: 61 QRSD: 104 T: 46 QT: 336 QTc: 406 Interpretive Statements SINUS RHYTHM No previous ECG available for comparison Electronically Signed On 10-12-2024 11:45:04 CDT by Jerry Anguiano M.D. [email or web address]
[2024-10-08 21:07] LABS: Basophils # 0.1 10^3/uL (0.0-0.1); Basophils % 0.7 %; Eosinophils # 0.3 10^3/uL (0.0-0.8); Eosinophils % 3.8 %; Hematocrit 43.7 % (37-53); Lymphocytes % 39.4 %; Mean Corpuscular HGB Conc 32.5 g/dL (30-55); Mean Corpuscular Hemoglobin 29.1 pg (27-33); Mean Corpuscular Volume 89.5 fl (82-101); Monocytes # 0.6 10^3/uL (0.2-0.9); Monocytes % 7.5 %; Neutrophils # 3.65 10^3/uL (1.8-7.7); Neutrophils % 48.2 %; Nucleated Red Blood Cells % 0 %; Platelet Count 226 10^3/cmm (157-399); Red Blood Count 4.88 10^6/uL (3.85-5.65); White Blood Count 7.57 10^3/uL (3.29-11.43)
--- NOTE | 2024-10-08 21:15 | CTR_ITS ---
PROCEDURE INFORMATION: Exam: CT Abdomen And Pelvis Without Contrast Exam date and time: 10/08/2024 10:04 PM Age: 44 years old Clinical indication: Abdominal pain; Localized; Left; Prior surgery; Surgery date: 6+ months; Surgery type: Colon resection; C/O right flank pain. History of colon cancer. TECHNIQUE: Imaging protocol: Computed tomography of the abdomen and pelvis without contrast. Radiation optimization: All CT scans at this facility use at least one of these dose optimization techniques: automated exposure control; mA and/or kV adjustment per patient size (includes targeted exams where dose is matched to clinical indication); or iterative reconstruction. COMPARISON: CT abdomen pelvis w con* [id number] 06/17/2023 4:20 PM RADIATION DOSE METRICS: Total DLP (mGy-cm): 1082.38 FINDINGS: Liver: Liver enlarged measuring 19.1 cm in the craniocaudal dimension. Normal contour. Hepatic steatosis. Very faint area of hyperdensity within the central right hepatic lobe measuring 1.8 x 1.1 x 1.5 cm. Gallbladder and biliary ducts: Normal. No calcified stones. No ductal dilation. Pancreas: Normal. No ductal dilation. Spleen: Normal. No splenomegaly. Adrenal glands: Normal. No mass. Kidneys and ureters: Normal. No hydronephrosis. Stomach and bowel: Postsurgical changes of right hemicolectomy with a left upper quadrant ileocolonic anastomosis. No identified complication of the anastomosis. Small and large bowel normal in caliber, without focal wall thickening or adjacent mesenteric inflammation. Nonobstructive bowel gas pattern. Appendix: Appendix surgically absent. Intraperitoneal space: See Stomach and bowel finding. Vasculature: Unremarkable. No abdominal aortic aneurysm. Lymph nodes: Unremarkable. No enlarged lymph nodes. Urinary bladder: Unremarkable as visualized. Reproductive: Unremarkable as visualized. Bones/joints: Mild thoracolumbar spondylosis. No acute osseous abnormality. Soft tissues: Unremarkable. CT/CT kidney stone [id number] IMPRESSION: 1. No identified acute pathology within the abdomen or pelvis. 2. Very faint area of hyperdensity within the central right hepatic lobe measuring 1.8 x 1.1 x 1.5 cm. This was not seen on comparison contrasted CTs and could reflect focal fatty sparing, but given the provided history of colon cancer, follow-up nonemergent hepatic protocol MRI or triple phase CT is recommended for further evaluation. 3. Hepatomegaly with steatosis.
--- NOTE | 2024-10-08 21:15 | XRR_ITS ---
PROCEDURE INFORMATION: Exam: XR Chest Exam date and time: 10/08/2024 9:47 PM Age: 44 years old Clinical indication: Pain; Prior surgery; Surgery date: 6+ months; Surgery type: Scapular fixation; C/O left sided chest pressure. ; Additional info: Chest pain TECHNIQUE: Imaging protocol: Radiologic exam of the chest. Views: 1 view. COMPARISON: CT chest abdpel w/*[id number] 11/17/2023 8:15 AM FINDINGS: Lungs: Unremarkable. No consolidation. Pleural spaces: Unremarkable. No pleural effusion. No pneumothorax. Heart/Mediastinum: Unremarkable. No cardiomegaly. Bones/joints: Postsurgical changes of the left shoulder girdle. XR/XR chest 1V portable [id number] IMPRESSION: As above.
--- NOTE | 2024-10-08 21:19 | ED_ITS ---
HPI - Chest Pain 2 General: Chief Complaint: Chest Pain Stated Complaint: Chest tight low right flank pain Time Seen by Provider: 10/08/24 20:54 History of Present Illness: 44-year-old male presents the ER chief c omplaint of left-sided chest pain and discomfort that started while watching TV he also endorsed some right-sided flank pain. Patient denies any history of any known cardiac issues reports no palpitations or shortness of breath with this chest pain reports it is reproducible on exam he does endorse a prior history of colon cancer with 13 into the colon removed back in 2019 patient denies any GI symptoms reports no nausea vomiting diarrhea constipation or fevers reports no known history of underlying kidney stones reports no dysuria urinary frequency patient presents to the ER for further assessment and management. Associated symptoms: Reports abdominal pain; Deny dyspnea, fever(s), nausea, palpitations or vomiting Related Data Previous Rx's ?Medication ?Instructions ?Recorded triamcinolone acetonide 0.1 % 1 applic topical DAILY # 30 grams 07/22/23 topical cream fluticasone propionate 50 1 spray intranasal BID #16 g germania 01/23/24 mcg/actuation nasal spray,suspension rosuvastatin 20 mg tablet 20 mg PO DAILY #90 tabs 01/11 06/04 ibuprofen 600 mg tablet 600 mg PO Q8H PRN pain #20 t abs 10/08/24 Allergies Allergy/AdvReac Type Severity Reaction Status Date / Time No Known Allergies Allergy Verified 01/23/24 13:13 Review of Systems 2 General: Reports: 10 or more systems reviewed and unremarkable except in HPI and below Const: Denies: fever(s), chills, fatigue or malaise Eyes: Denies: change in vision or blurry vision Card: Reports: chest pain; Denies: palpitations Resp: Denies: dyspnea or productive cough GI: Reports: abdominal pain and other (Flank pain); Denies: nausea or vomiting : Denies: flank pain Musc: Denies: extremity pain or extremity swelling Skin/Breast: Denies: rash or pruritus Neuro: Denies: headache(s) Psych: Denies: anxiety or depression Henry/Lymph: Denies: easy bleeding All/Imm: Denies: urticaria, throat swelling or facial swelling PFSH ED 2 PFSH: Medical History Rash and nonspecific skin eruption back of neck from BIPAP strap Allergic rhinitis, seasonal CONNOR treated with BiPAP Hepatic steatosis H/O malignant neoplasm of colon had colon resection 2019; seenasra [facility] specialist Surgical History Hx of shoulder surgery L scapula surgery after fall from bucket truck History of colon resection colon cancer; 2019; [facility]; no chemo or radiation H/O colonoscopy 4.. H/O circumcision Family History Father Cancer throat Grandfather Cancer liver Other Diabetes Denies family history of CAD (coronary artery disease) Anesthesia complication Bleeding disorder Social History Smoking and tobacco/nicotine status: never used tobacco/nicotine Second hand smoke exposure: No Alcohol intake: never Substance/Drug Use: never Adopted: No Caregiver/support person: No Lives independently: Yes Household members: friend(s) Marital status: Single Number of children: 1 Current occupational status: employed and unemployed Previous occupational history: [employer] service Current gender identity: Male Physical Exam 2 Const: COMMON NORMALS: no acute distress, patient oriented x3 and healthy appearing HENMT: COMMON NORMALS: normocephalic and atraumatic HEAD & SCALP: n ormocephalic and atraumatic Eye: COMMON NORMALS: Equal, round and reactive pupils present and EOMs intact bilaterally PUPIL: Yes Equal, round and reactive pupils present Neck/C-Spine: COMMON NORMALS: full ROM, supple and no JVD Lymph: LYMPHATIC: no lymphadenopathy noted Chest: COMMONS NORMALS: normal inspection of the chest; negative for normal palpation of entire chest wall (Mild pain to palpation located left lateral chest region no ecchymosis step) Resp: COMMON NORMALS: normal respiratory effort, No retractions and clear to auscultation bilaterally EFFORT & INSPECTION: Yes able to speak in complete sentences and Yes symmetric chest movement AUSCULTATION: clear to auscultation bilaterally Cardio: COMMON NORMALS: no JVD, regular rate and regular rhythm RATE: r egular rate RHYTHM: regular rhythm GI: COMMON NORMALS: Normal to inspection, nondistended, normoactive bowel sounds present and Soft to palpation; negative for non-tender (Mild tenderness appreciated to the right flank region no rebound or guardin) INSPECTION: Yes normal to inspection PALPATION: Yes Soft to palpation : COMMON NORMALS: Yes no CVA tenderness BLADDER/KIDNEY EXAM: Yes no CVA tenderness Back/Pelvis: COMMON NORMALS: no CVA tenderness Extremity: COMMON NORMALS: normal to inspection and full ROM Neuro: COMMON NORMALS: patient oriented x3, CN's II-XII intact bilaterally, moves all extremities and no focal motor deficits Psych: COMMON NORMALS: mental status grossly normal, Normal thought process present, cooperative and normal affect THOUGHT PROCESS: Normal thought process present Skin: COMMON NORMALS: no rashes or lesions noted GENERAL SKIN EXAM: no rashes or lesions noted Course 2 Vital Signs: Vital signs: Vital Signs Temperature 98.2 F 10/08/24 20:43 Pulse Rate 80 10/08/24 23:00 Respiratory Rate 16 10/08/24 23:00 Blood Pressure 117/78 10/08/24 23:00 Pulse Oximetry 93 10/08/24 23:00 Oxygen Delivery Me thod Room Air 10/08/24 23:00 MDM - Chest Pain Medical Decision Making Due to patient's symptoms and condition IV established basic lab work imaging will be obtained will continue to follow. Patient is EKG came back unremarkable patient's cardiac troponin came back unremarkable as well as his CAT scan of the abdomen pelvis without IV contrast patient josie stable condition patient be subsequent discharged home advised further follow-up with primary care in 3 to 5 days and was to return the interim if any of his symptoms persist or worsen. Lab Data I reviewed the patient's lab results. 10/08/24 21:00 10/08/24 21:00 Radiology Impressions Abdomen/Pelvis CT 10/08/24 21:15 IMPRESSION: 1. No identified acute pathology within the abdomen or pelvis. 2. Very faint area of hyperdensity within the central right hepatic lobe measuring 1.8 x 1.1 x 1.5 cm. This was not seen on comparison contrasted CTs and could reflect focal fatty sparing, but given the provided history of colon cancer, follow-up nonemergent hepatic protocol MRI or triple phase CT is recommended for further evaluation. 3. Hepatomegaly with steatosis. Chest X-Ray 10/08/24 21:15 IMPRESSION: As above. Laboratory Results WBC 7.57 10^3/uL (3.29-11.43) 10/08/24 21:00 RBC 4.88 10^6/uL (3.85-5.65) 10/08/24 21:00 Hgb 14.20 g/dL (11.27-16.99) 10/08/24 21:00 Hct 43.7 % (37-53) 10/08/24 21:00 MCV 89.5 fl (82-101) 10/08/24 21:00 MCH 29.1 pg (27-33) 10/08/24 21: MCHC 32.5 g/dL (30-55) 10/08/24 21:00 RDW 13.0 % (12.1-15.1) 10/08/24:00 Plt Count 226 10^3/cmm (157-399) 10/08/24: MPV 10.0 fL (7.4-10.4) 10/08/24 21:00 Neut % (Auto) 48.2 % 10/08/24 21:00 Lymph % (Auto) 39.4 % 10/08/24 21:00 [place] % (Auto) 7.5 % 10/08/24 21:00 Eos % (Auto) 3.8 % 10/08/24 21:00 Baso % (Auto) 0.7 % 10/08/24 21:00 Neut # (Auto) 3.65 10^3/uL (1.8-7.7) 10/08/24 21:00 Lymph # (Auto) 3.0 10^3/uL (0.8-4.8) 10/08/24 21:00 Webster # (Auto) 0.6 10^3/uL (0.2-0.9) 10/08/24 21:00 Eos # (Auto) 0.3 10^3/uL (0.0-0.8) 10/08/24 21:00 Baso # (Auto) 0.1 10^3/uL (0.0-0.1) 10/08/24 21:00 Nucleated RBC % (auto) 0 % 10/08/24 21:00 Nucleated RBCs # 0.0 /100WBC 10/08/24 21:00 Sodium 140 mmol/L (136-145) 10/08/24 21:00 Potassium 4.0 mmol/L (3.5-5.1) 10/08/24 21:00 Chloride 101 mmol/L (98-107) 10/08/24 21:00 Carbon Dioxide 25 mmol/L (22-29) 10/08/24 21:00 Anion Gap 18.0 (5-19) 10/08/24 21:00 BUN 14 mg/dL (6-20) 10/08/24 21:00 Creatinine 1.0 mg/dL (0.7-1.2) 10/08/24 21:00 GFR Calculation 81.6 mL/min (90-130) L 10/08/24 21:00 Glucose 107 mg/dL (65-115) 10/08/24 21:00 Calculated Osmolality 291 mOsm/kg (285-295) 10/08/24 21:00 Calcium 9.1 mg/dL (8.5-10.5) 10/08/24 21:00 Total Bilirubin 0.3 mg/dL (0.15-1.2) 10/08/24 21:00 AST 26 U/L (0-40) 10/08/24 21:00 ALT 52 U/L (0-41) H 10/08/24 21:00 Alkaline Phosphatase 32 U/L (40-130) L 10/08/24 21:00 Troponin T Baseline < 6 ng/L (0-15) 10/08/24 21:00 NT-Pro-B Natriuret Pep < 36 pg/mL (0-125) 10/08/24 21:00 Total Protein 7.1 g/dL (6.6-8.7) 10/08/24 21:00 Albumin 4.3 g/dL (3.5-5.2) 10/08/24 21:00 Globulin 2.8 g/dL (1.3-4.6) 10/08/24 21:00 Lipase 74 U/L (13-60) H 10/08/24 21:00 All radiology interpretation(s) finalized by discharge Discharge Plan Discharge Patient Disposition: Home Clinical Impression: Atypical chest pain, Acute right flank pain Condition: Stable Prescriptions: New ibuprofen 600 mg tablet 600 mg PO Q8H PRN (Reason: pain) Qty: 20 0RF No Action fluticasone propionate 50 mcg/actuation spray,suspension 1 spray intranasal BID Qty: 16 5RF triamcinolone acetonide 0.1 % cream 1 applic topical DAILY Qty: 30 2RF rosuvastatin 20 mg tablet 20 mg PO DAILY Qty: 90 3RF Discharge Orders: Discharge ED (Routine); Ordered 10/08/24 Ordered By: Baron Mcclain Referrals: Jennie Vernon MD [Primary Care Provider, [facility]] - 4-7 days Discharge Diet: Advance as tolerated Discharge Activity: Increase activity as tolerated Patient Instructions: Pain Management, Flank Pain (ED) Activity Restrictions/Additional Instructions: Please further follow-up your primary care doctor in 3 to 5 days and was to return the interim if any of your symptoms persist or worse. Print Language: Prydeinig Coding Level of Care Code ED Metal Sprayer Protective Coating for Judith Torres
[2024-10-08 21:32] LABS: Troponin(5th) Baseline < 6 ng/L (0-15)
[2024-10-08 21:33] LABS: Alanine Aminotransferase 52 U/L (0-41); Albumin Level 4.3 g/dL (3.5-5.2); Alkaline Phosphatase 32 U/L (40-130); Aspartate Amino Transferase 26 U/L (0-40); Blood Urea Nitrogen 14 mg/dL (6-20); Calcium 9.1 mg/dL (8.5-10.5); Carbon Dioxide 25 mmol/L (22-29); Chloride 101 mmol/L (98-107); Creatinine Clr Calc Pharmacy 129.5537; Globulin 2.8 g/dL (1.3-4.6); Glomerular Filtration Rate 81.6 mL/min (90-130); Glucose 107 mg/dL (65-115); Lipase 74 U/L (13-60); Osmolality Calculated 291 mOsm/kg (285-295); Sodium 140 mmol/L (136-145); Total Bilirubin 0.3 mg/dL (0.15-1.2); Total Protein 7.1 g/dL (6.6-8.7)
[2024-10-08 21:41] LABS: NT Pro B Type Natriuretic Pept < 36 pg/mL (0-125)
[2024-10-08] MEDS: sodium chloride 0.9% 500 ML 999 ML IV (21:57)
[2024-10-08] MEDS: ketorolac 30 mg/mL INJ IVP (21:58)
[2024-10-08 22:00] VITALS: BP 130/80; PULSE 82; RESP 16; O2SAT 95
[2024-10-08 23:00] VITALS: BP 117/78; PULSE 80; RESP 16; O2SAT 93
[2024-10-08 23:20] VITALS: BP 117/78; PULSE 78; O2SAT 96
[2024-10-08 23:31] LABS: Troponin 5 2HR < 6.0 ng/L (0-15); Troponin 5 2HR Delta 0 ABS# (0-10)
== END 2024-10-08 23:23 | disposition home or self-care (01) ==
PROVIDERS: Emergency Medicine; Emergency Provider Emergency Medicine; PCP Family Medicine
DX: R07.89 Other chest pain (principal); R10.9 Unspecified abdominal pain
CPT/HCPCS: 36415; 71045; 74176; 80053; 83690; 83880; 84484; 85025; 93005; 96374; 99285; J1885; J7040

== ENCOUNTER → 2025-04-28 12:06 | Outpatient (BNVA) | payer OTHER, SELFPAY | PROVIDERS: PCP Family Medicine | DX: R52 Pain, unspecified (principal); J02.9 Acute pharyngitis, unspecified | CPT/HCPCS: 87071; 87400; 87426; 87880 ==